=== PATIENT | male | born 1970 | race American Indian/Alaskan Native ===

== ENCOUNTER 2016-12-27 19:03 | Emergency (ER) | payer MEDICARE, BC ==
[2016-12-27 19:04] VITALS: BMI 35.2
[2016-12-27 19:10] VITALS: RESP 16; TEMP 98.6
[2016-12-27] MEDS ORDERED: Iohexol 240 (50 ml) ONE (19:46)
--- NOTE | 2016-12-27 19:49 | ED PDOC ---
Arrival/HPI - History of Present Illness Time/Duration: 4-6 hours Symptom Onset: Sudden Symptom Course: Unchanged Quality: Other (sharp and constant) Severity Level: 7 Activities at Onset: Rest Context: Sitting <Randy Chapa - Last Filed: 12/28/16 00:16> - General Historian: Patient <Jerrica Garcia - Last Filed: 12/28/16 01:19> - General Chief Complaint: Abdominal Pain Time Seen by Provider: 12/27/16 19:09 - History of Present Illness Narrative History of Present Illness (Text): 12/27/16 19:42 This is a 46 yr. old male with a pertinent past medical history of Hypertension , Type 2 D.M., Gastritis, Pulmonary embolism, ESRD, and stomach ulcers who comes to [facility] complaining of jaiden-umbilical pain since earlier this morning. The patient reports being at dialysis earlier today when he began to have jaiden-umbilical pain. He describes the pain as sharp and constant in nature with no radiation. The patient reports taking a Dilaudid pill earlier but denies any improvement in symptoms. The patient reports three episodes of non-bloody, bilious vomiting in conjunction with the jaiden-umbilical pain. The patient denies any chest pain, shortness of breath, nausea, constipation, diarrhea, weakness, or any other complaints. (Randy Chapa) Past Medical History - Provider Review Nursing Documentation Reviewed: Yes - Infectious Disease Hx of Infectious Diseases: None - Tetanus Immunization Tetanus Immunization: Unknown - Cardiac Hx Cardiac Disorders: Yes Hx Hypertension: Yes - Renal Hx Renal Disorder: Yes Hx Dialysis: Yes Type of Dialysis Access: left AV fistula Date of Last Dialysis Treatment: 12/27/16 Hx Renal Failure: Yes - Endocrine/Metabolic Hx Diabetes Mellitus Type 1: Yes (dx at 16 yrs old,pt uses insulin pump at home) - Hematological/Oncological Hx Blood Transfusions: (NA) Hx Blood Transfusion Reaction: (NA) - Musculoskeletal/Rheumatological Hx Falls: No - Gastrointestinal Hx Gastritis: Yes - Psychiatric Hx Depression: No Hx Emotional Abuse: No Hx Physical Abuse: No Hx Substance Use: No - Surgical History Hx Cholecystectomy: Yes Hx Kidney Transplant: Yes (2009) - Anesthesia Hx Anesthesia Reactions: No Hx Malignant Hyperthermia: No - Suicidal Assessment Feels Threatened In Home Enviroment: No <Randy Chapa - Last Filed: 12/28/16 00:16> Family/Social History - Physician Review Nursing Documentation Reviewed: Yes Family/Social History: No Known Family HX Smoking Status: Never Smoked Hx Alcohol Use: No Hx Substance Use: No Hx Substance Use Treatment: No <Randy Chapa - Last Filed: 12/28/16 00:16> Allergies/Home Meds <Randy Chapa - Last Filed: 12/28/16 00:16> <Jerrica Garcia - Last Filed: 12/28/16 01:19> Allergies/Adverse Reactions: Allergies No Known Allergies Allergy (Verified 12/29/12 08:26) Home Medications: Home Meds Medication Instructions Recorded Confirmed HYDROmorphone [Dilaudid] 4 mg PO Q6H PRN 02/28/13 12/27/16 Insulin Glulisine [Apidra] 0 unit SQ TID 12/27/16 12/27/16 Lisinopril [Zestril] 5 mg PO DAILY 12/27/16 12/27/16 Metoclopramide [Reglan] 10 mg PO TID 12/27/16 12/27/16 Ondansetron [Zofran Odt] 4 mg PO PRN PRN 12/27/16 12/27/16 Pantoprazole Sodium [Protonix] 40 mg PO DAILY 12/27/16 12/27/16 amLODIPine [Norvasc] 10 mg PO DAILY 12/27/16 12/27/16 cloNIDine [clonidine HCl] 0.2 mg PO TID 12/27/16 12/27/16 Review of Systems - Physician Review All systems were reviewed & negative as marked: Yes - Review of Systems Constitutional: Normal. absent: Weight Change, Fevers, Night Sweats Eyes: Normal. absent: Vision Changes, Eye Pain ENT: Normal. absent: Sore Throat, Sinus Congestion Respiratory: Normal, SOB. absent: Cough, Sputum, Wheezing Cardiovascular: Normal. absent: Chest Pain, Palpitations Gastrointestinal: Abdominal Pain (periumbilical pain with no radiation), Nausea , Vomiting (Three episodes of non-bloody, billious). absent: Constipation, Diarrhea Genitourinary Male: Normal. absent: Frequency, Hematuria Musculoskeletal: Normal. absent: Back Pain Neurological: Normal. absent: Headache, Dizziness Endocrine: Normal. absent: Polyuria, Polydipsia Hemo/Lymphatic: Normal. absent: Easy Bruising Psychiatric: Normal <Randy Chapa - Last Filed: 12/28/16 00:16> Physical Exam Vital Signs Reviewed: Yes Temperature: Afebrile Blood Pressure: Normal Pulse: Tachycardic Respiratory Rate: Normal Appearance: Positive for: Well-Appearing, Non-Toxic, Comfortable Pain Distress: Moderate Mental Status: Positive for: Alert and Oriented X 3 - Systems Exam Head: Present: Atraumatic, Normocephalic Pupils: Present: PERRL. No: Sluggish Extroacular Muscles: Present: EOMI. No: Gaze Palsy Conjunctiva: Present: Normal. No: Injected Mouth: Present: Moist Mucous Membranes, Normal Tounge Nose (External): No: Laceration Neck: Present: Normal Range of Motion. No: JVD, Lymphadenopathy Respiratory/Chest: Present: Clear to Auscultation, Good Air Exchange. No: Respiratory Distress, Accessory Muscle Use, Wheezes Cardiovascular: Present: Regular Rate and Rhythm, Normal S1, S2, Tachycardic. No: Murmurs, Bradycardic Abdomen: Present: Tenderness (noted in all quadrants of the abdomen), Normal Bowel Sounds. No: Distention, Peritoneal Signs Upper Extremity: Present: Other (A/V fistula in left arm, PICC line in right arm ) Lower Extremity: No: Edema, Swelling Neurological: Present: CN II-XII Intact, Speech Normal Skin: Present: Dry, Rashes (Anterior right bowers has some rash noted.) Psychiatric: Present: Alert, Oriented x 3, Normal Insight <Randy Chapa - Last Filed: 12/28/16 00:16> Medical Decision Making <Randy Chapa - Last Filed: 12/28/16 00:16> - RAD Interpretation Nuclear Licensing Engineer: Radiologist <Jerrica Garcia - Last Filed: 12/28/16 01:19> ED Course and Treatment: 12/27/16 19:56 This is a 46 yr. old male who comes in to [facility] complaining of periumbilical pain that started at dialysis earlier today. I ordered a cbc w/diff, cmp, lipase, and an abdomen and pelvis ct with PO contrast. The patient was given Protonix and Zofran for symptoms. Patient will be re-evaluated once lab results return. 12/27/16 20:03 12/27/16 20:04 Patient was given Benadryl and Dilaudid for remaining complaints. Patient will be re-evaluated once all lab results return. 12/27/16 22:28 Patient reporting no improvement in pain severity. Patient requesting more IV Dilaudid and IV Benadryl. Patient offered PO Dilaudid however reports it isn't affective for his pain and prefers not to take it. Informed patient that IV Dilaudid could no longer be administered to him. 12/28/16 00:16 Patient to be discharged on Ciprofloxacin and Flagyl for 7 days. (Randy Chapa) 12/27/16 22:50 CT Abdomen and Pelvis Without Intravenous Contrast COMPARISON: No relevant prior studies available. FINDINGS: Lower thorax: No acute findings. ABDOMEN: Liver: Unremarkable. No suspicious lesions are seen. Gallbladder and bile ducts: There has been a cholecystectomy. Pancreas: Unremarkable. No ductal dilation. Spleen: Unremarkable. No splenomegaly. Adrenals: Unremarkable. No mass. Kidneys and ureters: A transplant kidney is present in the right lower quadrant without significant hydronephrosis. Retained contrast within the patient's calyces and renal pelvis is noted in association with a transplant kidney, likely from a previous contrast enhanced study. Mild pelvic caliectasis. No significant hydronephrosis. Stomach and bowel: Moderate amount of formed fecal material is seen within the large bowel loops which may be associated with constipation. There is apparent moderate thickening of the second to patient's rectosigmoid which is possibly due to inadequate distention. Presence of underlying sigmoiditis or proctitis cannot be excluded. Please correlate clinically. Please see images 98, series 601. Appendix: No findings to suggest acute appendicitis. PELVIS: Bladder: The bladder is decompressed but otherwise normal. No stones. Reproductive: Unremarkable as visualized. ABDOMEN and PELVIS: Intraperitoneal space: Unremarkable. No free air. No significant fluid collection. Bones/joints: No acute fracture. No dislocation. Soft tissues: Fat-containing ventral hernia likely an incisional hernia. Vasculature: The aorta demonstrates moderate atherosclerotic calcification. There is small vessel calcification present. No abdominal aortic aneurysm. Lymph nodes: Unremarkable. No enlarged lymph nodes. Tubes, lines and devices: Neural stimulator device and leads appear in place. Shrunken atrophic kidneys bilaterally with nonspecific calcifications likely vascular. IMPRESSION: Patient has history of chronic renal failure presumably secondary to diabetes. A transplant kidney seen in the right lower quadrant without significant hydronephrosis. Other surgical changes as described. Moderate thickening of the rectosigmoid as described without significant adjacent fluid stranding. Findings could be related to inadequate distention or mild sigmoiditis, or proctitis. 12/28/16 00:20 In agreement with resident note, which includes further HPI details. Patient was seen and evaluated with resident, came up with plan and treatment together. 12/28/16 01:17 Patient with noted history. Labs are nondiagnostic and c/w ESRD; due for HD tomorrow (given kayexalate for K of 5.6); CT showing possible sigmoiditis - will d/c on cipro and flagyl; he has no fever or leukocytosis or vomiting and pain is controlled here in the ED - no indication for admission - ok for d/c to f/u pmd and HD tomorrow. (Jerrica Garcia) - Lab Interpretations Lab Results: 12/27/16 19:45 12/27/16 19:45 Lab Results 12/27/16 19:45: Sodium 132, Potassium 5.6 H* D, Chloride 95, Carbon Dioxide 26, Anion Gap 17, BUN 49 H, Creatinine 10.3 H*, Est GFR ( Amer) 7, Est GFR ( Non-Af Amer) 5, Random Glucose 265 H, Calcium 8.8, Total Bilirubin 0.4, AST 35, ALT 13, Alkaline Phosphatase 131, Total Protein 6.6, Albumin 3.1, Globulin 3.5, Albumin/Globulin Ratio 0.9 L, Lipase 41 12/27/16 19:45: WBC 7.1, RBC 3.35 L, Hgb 9.2 L, Hct 27.9 L, MCV 83.3, MCH 27.5, MCHC 33.0, RDW 16.6 H, Plt Count 318, MPV 9.2, Gran % 71.0 H, Lymph % (Auto) 13.0 L, [place] % (Auto) 8.4 H, Eos % (Auto) 7.2 H, Baso % (Auto) 0.4, Gran # 5.01 , Lymph # 0.9 L, [place] # 0.6, Eos # 0.5, Baso # 0.03, Corrected WBC (Man) Cancelled, Neutrophils % (Manual) Cancelled, Band Neutrophils % Cancelled, Lymphocytes % (Manual) Cancelled, Atypical Lymphs % Cancelled, Monocytes % ( Manual) Cancelled, Eosinophils % (Manual) Cancelled, Basophils % (Manual) Cancelled, Metamyelocytes % Cancelled, Myelocytes % Cancelled, Promyelocytes % Cancelled, Nucleated RBC % Cancelled, Hypersegmented Polys Cancelled, Immature Lymphocytes Cancelled, Blast Cells Cancelled, Smudge Cells Cancelled, Toxic Granulation Cancelled, Dohle Bodies Cancelled, Murali Rods Cancelled, Platelet Evaluation Cancelled, Plt Clumps, EDTA Cancelled, Large Platelets Cancelled, Giant Platelets Cancelled, Polychromasia Cancelled, Hypochromasia Cancelled, Hyperchromasia Cancelled, Poikilocytosis (manual Cancelled, Basophilic Stippling Cancelled, Anisocytosis (manual) Cancelled, Microcytosis (manual) Cancelled, Macrocytosis (manual) Cancelled, Spherocytes Cancelled, Sickle Cells Cancelled, Target Cells Cancelled, Tear Drop Cells Cancelled, Ovalocytes Cancelled, Stomatocytes Cancelled, Helmet Cells Cancelled, [place] Rings Cancelled , John Cells Cancelled, Acanthocytes (Spur) Cancelled, Rouleaux Cancelled, Schistocytes Cancelled - RAD Interpretation Radiology Orders: 12/27/16 19:41 ABDOMEN & PELVIS [ABD & PELVIS PO CONTRAST ONLY] [CT] Stat - Medication Orders Current Medication Orders: Discontinued Medications Ciprofloxacin (Cipro) 250 mg PO STAT STA PRN Reason: Protocol Stop: 12/27/16 23:05 Last Admin: 12/27/16 23:23 Dose: 250 mg Diphenhydramine HCl (Benadryl) 10 mg IVP STAT STA Stop: 12/27/16 20:03 Last Admin: 12/27/16 20:16 Dose: 10 mg Diphenhydramine HCl (Benadryl) 10 mg IVP STAT STA Stop: 12/28/16 00:14 Last Admin: 12/28/16 00:26 Dose: 10 mg Hydromorphone HCl (Dilaudid) 1 mg IVP STAT STA Stop: 12/27/16 20:03 Last Admin: 12/27/16 20:15 Dose: 1 mg Hydromorphone HCl (Dilaudid) 2 mg IVP STAT STA Stop: 12/27/16 23:05 Last Admin: 12/27/16 23:23 Dose: 2 mg Iohexol (Omnipaque 240 (50 Ml)) Confirm Administered Dose 50 ml .ROUTE .STK-MED ONE Stop: 12/27/16 19:47 Metronidazole (Flagyl) 500 mg PO STAT STA PRN Reason: Protocol Stop: 12/27/16 23:06 Last Admin: 12/27/16 23:23 Dose: 500 mg Ondansetron HCl (Zofran Inj) 4 mg IVP STAT STA Stop: 12/27/16 19:41 Last Admin: 12/27/16 20:16 Dose: 4 mg Pantoprazole Sodium (Protonix Inj) 40 mg IVP STAT STA Stop: 12/27/16 19:42 Last Admin: 12/27/16 20:15 Dose: 40 mg Sodium Polystyrene Sulfonate (Kayexalate Oral Susp) 30 gm PO STAT STA Stop: 12/27/16 23:07 Last Admin: 12/27/16 23:23 Dose: 30 gm <Randy Chapa - Last Filed: 12/28/16 00:16> - PA / CLAIM INSPECTOR / Resident Statement MD/ has reviewed & agrees with the documentation as recorded. MD/DO has examined the patient and agrees with the treatment plan. - Scribe Statement The provider has reviewed the documentation as recorded by the Scribe <Jerrica Garcia - Last Filed: 12/28/16 01:19> - Scribe Statement 12/27/2016 Ruba Bravo Provider Scribe Attestation: All medical record entries made by the Scribe were at my direction and personally dictated by me. I have reviewed the chart and agree that the record accurately reflects my personal performance of the history, physical exam, medical decision making, and the department course for this patient. I have also personally directed, reviewed, and agree with the discharge instructions and disposition. (Jerrica Garcia) Disposition/Present on Arrival - Present on Arrival Any Indicators Present on Arrival: No History of DVT/PE: No History of Uncontrolled Diabetes: No Urinary Catheter: No History of Decub. Ulcer: No History Surgical Site Infection Following: None - Disposition Have Diagnosis and Disposition been Completed?: Yes Disposition Time: 00:21 Patient Plan: Discharge <Randy Chapa - Last Filed: 12/28/16 00:16> <Jerrica Garcia - Last Filed: 12/28/16 01:19> - Disposition Diagnosis: Sigmoiditis Disposition: HOME/ ROUTINE Condition: GOOD Additional Instructions: Patient is to f/u with PMD within one week. Patient prescribed Ciprofloxacin 250mg BID X 7 days and Flagyl 500 mg BID x 7 days. Patient is to return to [facility] for any new or concerning symptoms. Prescriptions: Ciprofloxacin HCl [Cipro] 250 mg PO BID #14 tablet Metronidazole [Flagyl] 500 mg PO BID #14 tablet Referrals: PCP,NO [Primary Care Provider] - Follow up with primary Forms: [employer] (Hebrew)
[2016-12-27] MEDS ORDERED: DiphenhydrAMINE 50 mg/ml Inj IVP STA (20:02)
[2016-12-27] MEDS ORDERED: HYDROmorphone 1 mg/ml ISec IVP STA (20:02)
[2016-12-27 20:10] LABS: ALB/GLOB RATIO 0.9 (1.1-1.8); BILIRUBIN,TOTAL 0.4 mg/dL (0.2-1.3); CALCIUM 8.8 mg/dL (8.4-10.5); TOTAL PROTEIN 6.6 g/dL (5.8-8.3)
[2016-12-27 20:15] LABS: POTASSIUM 5.6 mmol/L (3.6-5.0)
[2016-12-27 20:35] LABS: BASO # 0.03 K/mm3 (0.0-2.0); BASO % 0.4 % (0.0-3.0); EOS # 0.5 (0.0-0.7); EOS % 7.2 % (1.5-5.0); GRAN # 5.01 (1.4-6.5); HEMATOCRIT 27.9 % (42.0-52.0); LYMPH # 0.9 (1.2-3.4); MEAN CELL VOLUME 83.3 fl (80.0-105.0); MEAN CORPUSCULAR HEMOGLOBIN 27.5 pg (25.0-35.0); MEAN PLATELET VOLUME 9.2 fl (7.0-11.0); MONO # 0.6 (0.1-0.6); MONO % 8.4 % (1.0-6.0); RED CELL DISTRIBUTION WIDTH 16.6 % (11.5-14.5); WHITE BLOOD COUNT 7.1 10^3/ul (4.5-11.0)
[2016-12-27] MEDS ORDERED: HYDROmorphone 2 mg/ml ISec IVP STA (23:04)
[2016-12-27] MEDS ORDERED: Sod Polystyrene Sulf 15 gm/60 ml Oral Susp PO STA (23:06)
[2016-12-27 23:35] VITALS: PULSE 89; O2SAT 95
[2016-12-28] MEDS ORDERED: DiphenhydrAMINE 50 mg/ml Inj IVP STA (00:13)
[2016-12-28 00:41] VITALS: BP 154/90
--- NOTE | 2016-12-28 10:47 | CT ---
PROCEDURE: CT Abdomen and Pelvis without intravenous contrast HISTORY: diffuse abdominal pain COMPARISON: 02/12/2013 TECHNIQUE: Without contrast. Contrast Dose: Radiation dose: Total exam DLP = 1169 mGy-cm. This CT exam was performed using one or more of the following dose reduction techniques: Automated exposure control, adjustment of the mA and/or kV according to patient size, and/or use of iterative reconstruction technique. FINDINGS: LOWER THORAX: Unremarkable. LIVER: Unremarkable. No gross lesion or ductal dilatation. GALLBLADDER AND BILE DUCTS: Gallbladder removed PANCREAS: Unremarkable. No gross lesion or ductal dilatation. SPLEEN: Unremarkable. ADRENALS: Unremarkable. No mass. KIDNEYS AND URETERS: The [place] kidneys are atrophic. There is a transplant kidney in the right lower quadrant. There is some dense material within renal pelvis and calices. Has the patient had a recent contrast-enhanced exam? There is no record of a recent exam at this institution. VASCULATURE: Unremarkable. No aortic aneurysm. BOWEL: There is some mural thickening in the rectosigmoid. This could be due to under distention. Mild colitis is possible APPENDIX: Unremarkable. Normal appendix. PERITONEUM: Unremarkable. No free fluid. No free air. LYMPH NODES: Unremarkable. No enlarged lymph nodes. BLADDER: Unremarkable. REPRODUCTIVE: Unremarkable. BONES: No acute fracture. OTHER FINDINGS: The report concurs with the preliminary [facility] report IMPRESSION: There is some mural thickening in the rectosigmoid. This could be due to under distention. Mild colitis is possible The [place] kidneys are atrophic. There is a transplant kidney in the right lower quadrant. There is some dense material within renal pelvis and calices. Has the patient had a recent contrast-enhanced exam? There is no record of a recent exam at this institution.
== END 2016-12-28 00:39 | disposition home or self-care (01) ==
LOC: ED 19:03
DX: K52.9 Noninfective gastroenteritis and colitis, unspecified (principal)
CPT/HCPCS: 74176; 80053; 83690; 85025; 96374; 96375; 96376; 99283; C9113; J1170; J1200; J2405; Q9966

== ENCOUNTER 2016-12-29 06:55 | Emergency (ER) | payer MEDICARE, BC ==
[2016-12-29 06:55] VITALS: BMI 35.2
[2016-12-29 07:11] VITALS: BP 178/109; PULSE 106; RESP 16; TEMP 98.4; O2SAT 97
--- NOTE | 2016-12-29 07:39 | ED PDOC ---
Arrival/HPI <Jose Guadalupe Saha - Last Filed: 12/29/16 08:37> - History of Present Illness Time/Duration: 4-6 hours Symptom Onset: Sudden Symptom Course: Unchanged Quality: Other (sharp) Severity Level: 8 Activities at Onset: Rest Context: Sitting <Randy Chapa - Last Filed: 12/29/16 08:51> - General Time Seen by Provider: 12/29/16 07:07 - History of Present Illness Narrative History of Present Illness (Text): 12/29/16 07:35 This is a 46 yr old male with a past medical history of hypertension, ESRD, s/p renal transplant, gastroporesis, gastritis, and Type 2 Diabetes who comes to [facility] complaining of vomiting since 4:30 a.m. this morning. The patient reports three episodes of non-bloody, non-bilious vomit. The patient also reports in conjunction with the vomiting jaiden-umbilical pain with no radiation. The patient describes the pain as sharp in nature that is constant. The patient reports trying to take PO Dilaudid for relief but denies any improvement in symptoms. The patient denies any chest pain, shortness of breath, fever, chills, constipation, diarrhea, or any other complaints. ( Randy Chapa) Past Medical History - Provider Review Nursing Documentation Reviewed: Yes - Infectious Disease Hx of Infectious Diseases: None - Tetanus Immunization Tetanus Immunization: Unknown - Cardiac Hx Cardiac Disorders: Yes Hx Hypertension: Yes - Renal Hx Renal Disorder: Yes Hx Dialysis: Yes Date of Last Dialysis Treatment: 12/27/16 Hx Renal Failure: Yes - Endocrine/Metabolic Hx Diabetes Mellitus Type 1: Yes (dx at 16 yrs old,pt uses insulin pump at home) - Hematological/Oncological Hx Blood Transfusions: (NA) Hx Blood Transfusion Reaction: (NA) - Musculoskeletal/Rheumatological Hx Falls: No - Gastrointestinal Hx Gastritis: Yes - Psychiatric Hx Depression: No Hx Emotional Abuse: No Hx Physical Abuse: No Hx Substance Use: No - Surgical History Hx Cholecystectomy: Yes Hx Kidney Transplant: Yes (2009) - Anesthesia Hx Anesthesia Reactions: No Hx Malignant Hyperthermia: No - Suicidal Assessment Feels Threatened In Home Enviroment: No <Randy Chapa - Last Filed: 12/29/16 08:51> Family/Social History - Physician Review Nursing Documentation Reviewed: Yes Family/Social History: No Known Family HX Smoking Status: Never Smoked Hx Alcohol Use: No Hx Substance Use: No Hx Substance Use Treatment: No <Randy Chapa - Last Filed: 12/29/16 08:51> Allergies/Home Meds <Jose Guadalupe Saha - Last Filed: 12/29/16 08:37> <Randy Chapa - Last Filed: 12/29/16 08:51> Allergies/Adverse Reactions: Allergies ketamine Adverse Reaction (Severe, Verified 12/29/16 07:13) DIZZINESS patient states that after ketamine had bizzare behavior (no dizziness) Home Medications: Home Meds Medication Instructions Recorded Confirmed HYDROmorphone [Dilaudid] 4 mg PO Q6H PRN 02/28/13 12/29/16 Insulin Glulisine [Apidra] 0 unit SQ TID 12/27/16 12/29/16 Lisinopril [Zestril] 5 mg PO DAILY 12/27/16 12/29/16 Metoclopramide [Reglan] 10 mg PO TID 12/27/16 12/29/16 Ondansetron [Zofran Odt] 4 mg PO PRN PRN 12/27/16 12/29/16 Pantoprazole Sodium [Protonix] 40 mg PO DAILY 12/27/16 12/29/16 amLODIPine [Norvasc] 10 mg PO DAILY 12/27/16 12/29/16 cloNIDine [clonidine HCl] 0.2 mg PO TID 12/27/16 12/29/16 Review of Systems - Physician Review All systems were reviewed & negative as marked: Yes - Review of Systems Constitutional: Normal. absent: Fatigue, Fevers, Night Sweats Eyes: Normal. absent: Vision Changes, Eye Pain ENT: Normal. absent: Rhinorrhea, Sinus Congestion Respiratory: Normal. absent: SOB, Cough, Sputum, Wheezing Cardiovascular: Normal. absent: Chest Pain, Palpitations, Syncope Gastrointestinal: Abdominal Pain (Periumbilical pain with no radiation), Nausea , Vomiting (3 episodes of vomiting since 4:30a.m.). absent: Constipation, Diarrhea, Hematochezia Genitourinary Male: Normal. absent: Frequency Musculoskeletal: Normal. absent: Back Pain Skin: Skin Lesions (Anterior shins bilaterally). absent: Abscess Neurological: Normal. absent: Headache, Dizziness Psychiatric: Normal <Randy Chapa - Last Filed: 12/29/16 08:51> Physical Exam Vital Signs Reviewed: Yes Temperature: Afebrile Blood Pressure: Hypertensive Pulse: Tachycardic Respiratory Rate: Normal Appearance: Positive for: Well-Appearing, Non-Toxic, Uncomfortable Pain Distress: Severe Mental Status: Positive for: Alert and Oriented X 3 - Systems Exam Head: Present: Atraumatic, Normocephalic Pupils: Present: PERRL. No: Sluggish Extroacular Muscles: Present: EOMI. No: Gaze Palsy Conjunctiva: Present: Normal. No: Injected Mouth: Present: Moist Mucous Membranes. No: Normal Tounge Neck: Present: Normal Range of Motion. No: JVD, Lymphadenopathy Respiratory/Chest: Present: Clear to Auscultation, Good Air Exchange. No: Respiratory Distress, Accessory Muscle Use, Wheezes Cardiovascular: Present: Regular Rate and Rhythm, Normal S1, S2. No: Murmurs, Tachycardic Abdomen: Present: Tenderness (Tenderness upon palpation in the periumbilical area), Normal Bowel Sounds. No: Distention, Rebound, Guarding Back: Present: Normal Inspection. No: Paraspinal Tenderness Upper Extremity: Present: Normal Inspection. No: Cyanosis, Edema Lower Extremity: Present: Normal Inspection. No: Edema Neurological: Present: CN II-XII Intact, Speech Normal Skin: Present: Dry, Normal Color. No: Warm, Rashes Psychiatric: Present: Alert, Oriented x 3, Normal Insight <Randy Chapa - Last Filed: 12/29/16 08:51> Vital Signs Temp Pulse Resp BP Pulse Ox 12/29/16 07:01 98.4 F 106 H 16 178/109 H 97 Medical Decision Making <Jose Guadalupe Saha - Last Filed: 12/29/16 08:37> <Randy Chapa - Last Filed: 12/29/16 08:51> ED Course and Treatment: 12/29/16 08:37 Patient seen and examined with resident Came up with treatment and disposition plan with resident 46yo male, hx of ESRD, states he is due for HD later today. Presents with abd. pain. States it is similar to previous. Pt states he needs pain medications for his abd pain and benadryl for the itching. Pt repeatedly asking for dilaudid IV since PO is no longer helping I have seen Hardeep at another institution in the past Had another long dw with patient about my concerns for opiate dependence I offered alternative therapies my concern was also that pt reported that he was driving and I did not want to give his benadryl which may make him drowsy patient was not happy with my plan I offered him workup for his complaint Informed by RN that patient eloped (Jose Guadalupe Saha) 12/29/16 07:50 Patient is a 46 yr old male who comes into [facility] complaining of three episodes of vomiting since 4:30 this morning. I ordered cbc w/diff, cmp, lipase, ct of abdomen and pelvis w/o contrast, ekg. Patient was given Pepcid, Topical Benadryl, Zofran, and Tylenol for symptoms. Patient exhibits drug seeking behavior. Patient requesting IV Dilaudid. Patient eloped once we informed him he would not be getting IV Dilaudid. 12/29/16 08:51 (Randy Chapa) - Lab Interpretations Lab Results: 12/29/16 07:30 12/29/16 07:30 Lab Results 12/29/16 07:30: Sodium 137, Potassium 5.0, Chloride 98, Carbon Dioxide 26, Anion Gap 18, BUN 68 H, Creatinine 12.7 H*, Est GFR ( Amer) 5, Est GFR ( Non-Af Amer) 4, Random Glucose 198 H, Calcium 9.1, Total Bilirubin 0.3, AST 31, ALT 26, Alkaline Phosphatase 109, Total Protein 7.0, Albumin 3.4, Globulin 3.6, Albumin/Globulin Ratio 0.9 L 12/29/16 07:30: WBC 8.9 D, RBC 3.46 L, Hgb 9.5 L, Hct 28.6 L, MCV 82.7, MCH 27.5, MCHC 33.2, RDW 16.4 H, Plt Count 300, MPV 9.2, Gran % 68.6 H, Lymph % ( Auto) 16.0 L, [place] % (Auto) 8.4 H, Eos % (Auto) 6.7 H, Baso % (Auto) 0.3, Gran # 6.08, Lymph # 1.4, [place] # 0.7 H, Eos # 0.6, Baso # 0.03 - Medication Orders Current Medication Orders: Discontinued Medications Acetaminophen (Tylenol 325mg Tab) 650 mg PO STAT STA Stop: 12/29/16 07:49 Last Admin: 12/29/16 07:54 Dose: Not Given Non-Admin Reason: Patient Refused Acetaminophen (Tylenol 325mg Tab) Confirm Administered Dose 650 mg .ROUTE .STK- MED ONE Stop: 12/29/16 07:52 Last Admin: 12/29/16 07:54 Dose: Diphenhydramine HCl (Benadryl Maximum Strength 1%) 0 ea TOP Q6H STA Stop: 12/29/16 07:46 Last Admin: 12/29/16 07:54 Dose: Not Given Non-Admin Reason: Patient Refused Famotidine (Pepcid) 40 mg PO STAT STA Stop: 12/29/16 07:45 Last Admin: 12/29/16 07:54 Dose: Not Given Non-Admin Reason: Patient Refused Disposition/Present on Arrival - Disposition Have Diagnosis and Disposition been Completed?: Yes Patient Plan: Other <Jose Guadalupe Saha - Last Filed: 12/29/16 08:37> - Present on Arrival Any Indicators Present on Arrival: No History of DVT/PE: No History of Uncontrolled Diabetes: No Urinary Catheter: No History of Decub. Ulcer: No History Surgical Site Infection Following: None - Disposition Have Diagnosis and Disposition been Completed?: No Disposition Time: 08:05 Patient Plan: Other (Elopement) <Randy Chapa - Last Filed: 12/29/16 08:51> - Disposition Diagnosis: Abdominal discomfort Disposition: ELOPEMENT - ER ONLY Condition: UNKNOWN Forms: [employer] (Dominican)
[2016-12-29] MEDS ORDERED: DiphenhydrAMINE 1% 1 EA TUBE TOP STA (07:45)
[2016-12-29 07:55] LABS: BASO # 0.03 K/mm3 (0.0-2.0); BASO % 0.3 % (0.0-3.0); EOS # 0.6 (0.0-0.7); EOS % 6.7 % (1.5-5.0); GRAN # 6.08 (1.4-6.5); GRAN % 68.6 % (50.0-68.0); HEMATOCRIT 28.6 % (42.0-52.0); LYMPH # 1.4 (1.2-3.4); MEAN CELL VOLUME 82.7 fl (80.0-105.0); MEAN CORPUSCULAR HEMOGLOBIN 27.5 pg (25.0-35.0); MEAN CORPUSCULAR HGB CONC 33.2 g/dl (31.0-37.0); MEAN PLATELET VOLUME 9.2 fl (7.0-11.0); MONO # 0.7 (0.1-0.6); MONO % 8.4 % (1.0-6.0); RED CELL DISTRIBUTION WIDTH 16.4 % (11.5-14.5); WHITE BLOOD COUNT 8.9 10^3/ul (4.5-11.0)
[2016-12-29 08:08] LABS: ALB/GLOB RATIO 0.9 (1.1-1.8); BILIRUBIN,TOTAL 0.3 mg/dL (0.2-1.3); CALCIUM 9.1 mg/dL (8.4-10.5)
--- NOTE | 2016-12-29 17:10 | CARD ---
APPROVED REPORT EKG Measurement Heart [id number] [id number] <Conclusion> Sinus tachycardia Anterior infarct, age undetermined T wave abnormality, consider lateral ischemia Abnormal ECG
== END 2016-12-29 08:24 | disposition left against medical advice (07) ==
LOC: ED 06:55
DX: R10.9 Unspecified abdominal pain (principal); I10 Essential (primary) hypertension; E11.9 Type 2 diabetes mellitus without complications

== ENCOUNTER 2016-12-31 09:17 | Emergency (ER) | payer MEDICARE, BC ==
[2016-12-31 09:17] VITALS: BMI 34.5
[2016-12-31 09:35] VITALS: TEMP 98.6; O2SAT 97
[2016-12-31 09:42] VITALS: RESP 18
--- NOTE | 2016-12-31 09:49 | ED PDOC ---
Arrival/HPI - General Historian: Patient - General Chief Complaint: Abdominal Pain Time Seen by Provider: 12/31/16 09:26 - History of Present Illness Narrative History of Present Illness (Text): 12/31/16 09:45 46 yr old male with a past medical history of Hypertension, Type 2 D.M., Gastritis, Pulmonary embolism, ESRD, and stomach ulcers who presents complaining of constant, nonradiating jaiden-umbilical pain associated with nausea and 3 episodes of vomiting since this morning. Patient reports having similar symptoms in the past, states that he has been evaluated in this emergency room and at [facility] for similar symptoms and he is usually given Dilaudid IV with Benadryl IV with improvement of his symptoms. Patient states that this pain is chronic and intermittent and that he does have Dilaudid PO at home which he has been taking with no improvement of his symptoms and is requesting an IV dose as it alleviates his pain better. Patient reports that he is due for dialysis at 3 pm today. The patient reports taking a Dilaudid pill earlier but denies any improvement in symptoms. Denies any chest pain, shortness of breath, fever, constipation, diarrhea, weakness, urinary symptoms or any other complaints. Reports h/o renal transplant in 2009, which failed this [facility] and he is back to HD, he is also s/p cholecystectomy. Of note, the patient admits to recently being evaluated in this emergency room, states that he was prescribed Cipro and Flagyl, which he is currently still taking. He adds that he has a appointment with a GI doctor in January, he states that during that visit he will also have an endoscopy done. PMD Chery (Brandon BATES,Altagracia Hernandez) Past Medical History - Provider Review Nursing Documentation Reviewed: Yes - Infectious Disease Hx of Infectious Diseases: None - Tetanus Immunization Tetanus Immunization: Unknown - Cardiac Hx Hypertension: Yes - Renal Hx Renal Disorder: Yes Type of Dialysis Access: left arm Date of Last Dialysis Treatment: 12/29/16 Hx Renal Failure: Yes - Endocrine/Metabolic Hx Diabetes Mellitus Type 1: Yes (dx at 16 yrs old,pt uses insulin pump at home) - Hematological/Oncological Hx Blood Transfusions: (NA) Hx Blood Transfusion Reaction: (NA) - Musculoskeletal/Rheumatological Hx Falls: No - Gastrointestinal Hx Gastritis: Yes - Psychiatric Hx Depression: No Hx Substance Use: No - Surgical History Hx Cholecystectomy: Yes - Anesthesia Hx Anesthesia Reactions: No Hx Malignant Hyperthermia: No - Suicidal Assessment Feels Threatened In Home Enviroment: No Family/Social History - Physician Review Nursing Documentation Reviewed: Yes Family/Social History: No Known Family HX Smoking Status: Never Smoked Hx Alcohol Use: No Hx Substance Use: No Hx Substance Use Treatment: No Allergies/Home Meds Allergies/Adverse Reactions: Allergies ketamine Adverse Reaction (Severe, Verified 12/31/16 09:35) DIZZINESS patient states that after ketamine had bizzare behavior (no dizziness) Home Medications: Home Meds Medication Instructions Recorded Confirmed HYDROmorphone [Dilaudid] 4 mg PO Q6H PRN 02/28/13 12/31/16 Insulin Glulisine [Apidra] 0 unit SQ TID 12/27/16 12/31/16 Lisinopril [Zestril] 5 mg PO DAILY 12/27/16 12/31/16 Metoclopramide [Reglan] 10 mg PO TID 12/27/16 12/31/16 Ondansetron [Zofran Odt] 4 mg PO PRN PRN 12/27/16 12/31/16 Pantoprazole Sodium [Protonix] 40 mg PO DAILY 12/27/16 12/31/16 amLODIPine [Norvasc] 10 mg PO DAILY 12/27/16 12/31/16 cloNIDine [clonidine HCl] 0.2 mg PO TID 12/27/16 12/31/16 Review of Systems - Review of Systems Constitutional: Normal. absent: Fatigue, Weight Change, Fevers Respiratory: Normal, SOB. absent: Cough, Sputum Cardiovascular: Normal. absent: Chest Pain, Palpitations, Edema Gastrointestinal: Normal, Abdominal Pain, Nausea, Vomiting. absent: Stool Changes, Constipation, Diarrhea, Appetite Changes Musculoskeletal: Normal, Myalgias. absent: Arthralgias, Back Pain, Neck Pain Skin: Normal. absent: Rash, Pruritis, Skin Lesions Neurological: Normal. absent: Headache, Dizziness, Focal Weakness Physical Exam - Physical Exam Narrative Physical Exam (Text): 12/31/16 09:49 GENERAL APPEARANCE: Patient is awake, alert, oriented x 3, in no acute distress. SKIN: Warm, dry; (-) cyanosis. EYES: (-) conjunctival pallor, (-) scleral icterus. ENMT: Mucous membranes dry. NECK: (-) tenderness, (-) stiffness, (-) lymphadenopathy. CHEST AND RESPIRATORY: (-) rales, (-) rhonchi, (-) wheezes; breath sounds equal bilaterally. HEART AND CARDIOVASCULAR: (-) irregularity; (-) murmur, (-) gallop. ABDOMEN AND GI: (-) distention. Bowel sounds active; (+) mild diffuse abdominal tenderness, (-) guarding, (-) rebound, (-) palpable masses, (-) CVA tenderness. EXTREMITIES: (-) deformity, (-) edema, (+) distal pulses. NEURO AND PSYCH: Mental status as above; (-) focal findings. (Brandon BATES,Altagracia Hernandez) Vital Signs Temp Pulse Resp BP Pulse Ox 12/31/16 12:00 89 18 165/89 H 97 12/31/16 11:09 98 H 18 167/94 H 97 12/31/16 09:42 98.6 F 107 H 18 169/110 H 97 12/31/16 09:30 98.6 F 107 H 20 169/110 H 97 Medical Decision Making ED Course and Treatment: 12/31/16 09:50 46 yr old male with a past medical history of Hypertension, Type 2 D.M., Gastritis, Pulmonary embolism, ESRD, and stomach ulcers who presents complaining of constant, nonradiating jaiden-umbilical pain associated with nausea and 3 episodes of vomiting since this morning. Previous medical records reviewed, patient has had numerous ED visits at [facility], and recently here. Patient was just evaluated on 12/27/16 for similar symptoms of periumbilical pain associated with nausea. During that ED visit patient had a CT A/P w/o contrast which showed mild sigmoiditis, or proctitis. Patient was then d/c on cipro and flagyl. Patient was then evaluated on 12/29/16 here for similar symptoms, however he eloped and that same day he went to [facility], were he left AMA. During those recent ED visits, it was noted that the patient may have opiate dependence and alternative treatment were offered. Plan: -- Labs -- IV fluids -- Pepcid / Zofran / Benadryl -- Reassess and disposition While in the emergency room, the patient was repeatedly asking for an IV dose of Dilaudid followed by a dose of Benadryl to alleviate his symptoms. Patient states that Pepcid and Zofran does not work for him and only Dilaudid improves his pain. Patient advised that the emergency room can provide alternative treatments for his symptoms and that we will hold off on providing Dilaudid IV at this time while the labs are pending. Patient is still continuing to ask for Dilaudid IV. Patient medicated with benadryl IV, patient refused IV pepcid and zofran. Labs reviewed : wbc 7.5, hgb 9 (which is stable from prior labs), k is normal, bun 50 / creat 11.1 (stable based on prior labs). On reevaluation, the patient is observed sleeping in the emergency room with improvement of his pain, easily arousable. At this time, the patient denies any abdominal pain or nausea and reports no other complaints. He is in no acute distress. Patient states that he is comfortable going home and that he will go for hemodialysis at his scheduled appointment of 3:00 this afternoon. VS : P 89 BP 165/89 R 18 O2sat 98%RA. Advised to follow up with primary care physician in 1-2 days without fail. Return to the emergency room at any time for any new or worsening symptoms. (Brandon BATES,Altagracia Hernandez) I reviewed patient's recent available visits. I reviewed patient's past history with patient. On exam, he denies any chest pain or shortness of breath. No fever. CV stable. He reports being scheduled for dialysis later today. Abdomen is soft, no rebound or guarding or peritoneal signs. Afebrile. No nausea. No uriticaria or wheezing or angioedema noted. Patient DENIES change in character or location of his current pain. Labs were reviewed, compared to recent visits. No active bleeding noted. K unremarkable. I have stressed need for close follow-up of his symptoms with his PMD, manager facility, and pain management physician. As he is CV stable, no change in character or quality or location of current symptoms from previous, I reviewed need for close follow-up. I reviewed his most recent available CT. He states he will continue his antibiotics as prescribed. He states he has script for pain medication that he has not filled yet from his pain management physician that he will fill on discharge. I have given him instructions on need for immediate follow-up, return to ED if symptoms worsen, change or persist. He is alert and oriented. (Joey Palacios) - Lab Interpretations Lab Results: 12/31/16 10:00 12/31/16 10:00 Lab Results 12/31/16 10:00: Sodium 136, Potassium 4.9, Chloride 98, Carbon Dioxide 26, Anion Gap 17, BUN 50 H, Creatinine 11.1 H*, Est GFR ( Amer) 6, Est GFR ( Non-Af Amer) 5, Random Glucose 175 H, Calcium 9.0, Total Bilirubin 0.4, AST 31, ALT 29, Alkaline Phosphatase 87, Total Protein 6.6, Albumin 3.2, Globulin 3.5, Albumin/Globulin Ratio 0.9 L, Lipase 15 L 12/31/16 10:00: WBC 7.5, RBC 3.37 L, Hgb 9.0 L, Hct 28.3 L, MCV 84.0, MCH 26.7, MCHC 31.8, RDW 16.7 H, Plt Count 328, MPV 9.3, Gran % 70.1 H, Lymph % (Auto) 13.9 L, [place] % (Auto) 9.0 H, Eos % (Auto) 6.6 H, Baso % (Auto) 0.4, Gran # 5.23 , Lymph # 1.0 L, [place] # 0.7 H, Eos # 0.5, Baso # 0.03 - Medication Orders Current Medication Orders: Discontinued Medications Diphenhydramine HCl (Benadryl) 25 mg IVP STAT STA Stop: 12/31/16 10:49 Last Admin: 12/31/16 10:59 Dose: 25 mg Famotidine (Pepcid) 20 mg IVP STAT STA Stop: 12/31/16 09:42 Last Admin: 12/31/16 09:45 Dose: Not Given Non-Admin Reason: Patient Refused Ondansetron HCl (Zofran Inj) 4 mg IVP STAT STA Stop: 12/31/16 09:42 Last Admin: 12/31/16 09:45 Dose: Not Given Non-Admin Reason: Patient Refused - 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 Disposition/Present on Arrival - Present on Arrival Any Indicators Present on Arrival: No History of DVT/PE: No History of Uncontrolled Diabetes: No Urinary Catheter: No History of Decub. Ulcer: No History Surgical Site Infection Following: None - Disposition Have Diagnosis and Disposition been Completed?: Yes Disposition Time: 12:11 Patient Plan: Discharge - Disposition Diagnosis: Abdominal pain, Vomiting Disposition: HOME/ ROUTINE Condition: STABLE Discharge Instructions (ExitCare): Acute Nausea and Vomiting (ED), Acute Abdominal Pain (ED) Print Language: CAY[place] ISLANDER Additional Instructions: Thank you for letting us take care of you today. You were treated for abdominal pain, vomiting. The emergency medical care you received today was directed at your acute symptoms. Please make every effort to go to dialysis today. Return to the Emergency Department if your symptoms worsen, do not improve, or if you have any other problems. Please contact your doctor in 2 days for re-evaluation and follow up. Bring any paperwork you were given at discharge with you along with any medications you are taking to your follow up visit. Our treatment cannot replace ongoing medical care by a primary care provider (PCP) outside of the emergency department. Thank you for allowing the [facility] team to be part of your care today. Referrals: Bianka Jiménez MD [Primary Care Provider] - Follow up with primary Forms: [employer] (Mosotho)
[2016-12-31 10:22] LABS: BASO # 0.03 K/mm3 (0.0-2.0); BASO % 0.4 % (0.0-3.0); EOS # 0.5 (0.0-0.7); EOS % 6.6 % (1.5-5.0); GRAN # 5.23 (1.4-6.5); GRAN % 70.1 % (50.0-68.0); HEMATOCRIT 28.3 % (42.0-52.0); LYMPH % 13.9 % (22.0-35.0); MEAN CORPUSCULAR HEMOGLOBIN 26.7 pg (25.0-35.0); MEAN CORPUSCULAR HGB CONC 31.8 g/dl (31.0-37.0); MEAN PLATELET VOLUME 9.3 fl (7.0-11.0); MONO # 0.7 (0.1-0.6); RED CELL DISTRIBUTION WIDTH 16.7 % (11.5-14.5); WHITE BLOOD COUNT 7.5 10^3/ul (4.5-11.0)
[2016-12-31 10:32] LABS: ALB/GLOB RATIO 0.9 (1.1-1.8); BILIRUBIN,TOTAL 0.4 mg/dL (0.2-1.3); POTASSIUM 4.9 mmol/L (3.6-5.0); TOTAL PROTEIN 6.6 g/dL (5.8-8.3)
[2016-12-31] MEDS ORDERED: DiphenhydrAMINE 50 mg/ml Inj IVP STA (10:48)
[2016-12-31 12:27] VITALS: BP 165/89; PULSE 89
== END 2016-12-31 12:58 | disposition home or self-care (01) ==
LOC: ED 09:17
DX: R10.9 Unspecified abdominal pain (principal); R11.10 Vomiting, unspecified; I10 Essential (primary) hypertension; E11.9 Type 2 diabetes mellitus without complications; K21.9 Gastro-esophageal reflux disease without esophagitis
CPT/HCPCS: 80053; 83690; 85025; 96374; 99283; J1200

== ENCOUNTER 2017-01-12 19:09 | Emergency (ER) | payer MEDICARE, BC ==
[2017-01-12 19:22] VITALS: BP 179/97; PULSE 104; RESP 20; TEMP 98.2; O2SAT 97
--- NOTE | 2017-01-12 19:36 | ED PDOC ---
Arrival/HPI <Brigido Rm - Last Filed: 01/12/17 21:04> - General Historian: Patient - History of Present Illness Time/Duration: Other (earlier today after dialysis) Symptom Onset: Sudden Symptom Course: Unchanged Quality: Stabbing Severity Level: 10 Activities at Onset: Other (dialysis) <Jong iSmon - Last Filed: 01/12/17 21:31> - General Chief Complaint: Abdominal Pain Time Seen by Provider: 01/12/17 19:15 - History of Present Illness Narrative History of Present Illness (Text): 01/12/17 19:33 This is a 46 year old male with PMH of chronic opiate dependency, hypertension, ESRD on HD M,W,F and s/p right renal transplant, diabetes, gastroparesis who is presenting with complaint of severe abdominal pain. The pain started earlier today after dialysis. Patient complaining of multiple bouts of nausea and bilious vomiting as well as intermittent itching. Patient also states that he has lower back pain as well. Patient is normally on PO Dilaudid but states that he has not taken it today. Patient also states that he has an appointment with his pain management physician tomorrow. Patient is well known to this ER as one with a history of chronic opiate dependence who regularly visits this ER as well as others in the surrounding area seeking Dilaudid. PMD: Dr. Jiménez Pain management: Dr. Cruz in [place] (Jong Simon) Past Medical History - Provider Review Nursing Documentation Reviewed: Yes - Infectious Disease Hx of Infectious Diseases: None - Tetanus Immunization Tetanus Immunization: Unknown - Cardiac Hx Hypertension: Yes - Renal Hx Renal Disorder: Yes - Endocrine/Metabolic Hx Diabetes Mellitus Type 1: Yes - Hematological/Oncological Hx Blood Transfusions: (NA) Hx Blood Transfusion Reaction: (NA) - Musculoskeletal/Rheumatological Hx Falls: No - Gastrointestinal Hx Gastritis: Yes Other/Comment: ABD PAIN - Genitourinary/Gynecological Other/Comment: HD - Psychiatric Hx Depression: No Hx Substance Use: No - Surgical History Hx Cholecystectomy: Yes Other/Comment: AV SHUNT - Anesthesia Hx Anesthesia: Yes Hx Anesthesia Reactions: No Hx Malignant Hyperthermia: No - Suicidal Assessment Feels Threatened In Home Enviroment: No <Jong Simon - Last Filed: 01/12/17 21:31> Family/Social History - Physician Review Nursing Documentation Reviewed: Yes Family/Social History: No Known Family HX Smoking Status: Never Smoked Hx Alcohol Use: No Hx Substance Use: No Hx Substance Use Treatment: No <LudydariaJong S - Last Filed: 01/12/17 21:31> Allergies/Home Meds <JagBrigido - Last Filed: 01/12/17 21:04> <AlfredJong S - Last Filed: 01/12/17 21:31> Allergies/Adverse Reactions: Allergies ketamine Adverse Reaction (Severe, Verified 01/12/17 19:11) DIZZINESS patient states that after ketamine had bizzare behavior (no dizziness) Home Medications: Home Meds Medication Instructions Recorded Confirmed HYDROmorphone [Dilaudid] 4 mg PO Q6H PRN 02/28/13 01/12/17 Insulin Glulisine [Apidra] 0 unit SQ TID 12/27/16 01/12/17 Lisinopril [Zestril] 5 mg PO DAILY 12/27/16 01/12/17 Metoclopramide [Reglan] 10 mg PO TID 12/27/16 01/12/17 Ondansetron [Zofran Odt] 4 mg PO PRN PRN 12/27/16 01/12/17 Pantoprazole Sodium [Protonix] 40 mg PO DAILY 12/27/16 01/12/17 amLODIPine [Norvasc] 10 mg PO DAILY 12/27/16 01/12/17 cloNIDine [clonidine HCl] 0.2 mg PO TID 12/27/16 01/12/17 Review of Systems - Review of Systems Constitutional: Normal Eyes: Normal ENT: Normal Respiratory: Normal Cardiovascular: Normal Gastrointestinal: Abdominal Pain (jaiden-umbilical), Nausea, Vomiting (bilious) Genitourinary Male: Normal Musculoskeletal: Normal Skin: Normal Neurological: Normal Endocrine: Normal Psychiatric: Normal <LudydariaJong S - Last Filed: 01/12/17 21:31> Physical Exam Vital Signs Reviewed: Yes Temperature: Afebrile Pulse: Tachycardic Respiratory Rate: Normal Appearance: Positive for: Uncomfortable Pain Distress: Severe Mental Status: Positive for: Alert and Oriented X 3 - Systems Exam Head: Present: Atraumatic, Normocephalic Pupils: Present: PERRL Extroacular Muscles: Present: EOMI Mouth: Present: Moist Mucous Membranes Neck: Present: Normal Range of Motion Respiratory/Chest: Present: Clear to Auscultation, Good Air Exchange. No: Accessory Muscle Use Cardiovascular: Present: Normal S1, S2, Tachycardic (epigastric) Abdomen: Present: Tenderness (jaiden-umbilical), Distention. No: Normal Bowel Sounds (hypoactive) Back: Present: Paraspinal Tenderness Upper Extremity: Present: Normal Inspection, NORMAL PULSES. No: Edema Lower Extremity: Present: Normal Inspection, Edema, NORMAL PULSES. No: CALF TENDERNESS Neurological: Present: GCS=15 Skin: Present: Warm, Dry, Normal Color Psychiatric: Present: Alert, Oriented x 3 <oJng Simon - Last Filed: 01/12/17 21:31> Vital Signs Temp Pulse Resp BP Pulse Ox 01/12/17 19:16 98.2 F 104 H 20 179/97 H 97 Medical Decision Making - Lab Interpretations I have reviewed the lab results: Yes <Brigido Rm - Last Filed: 01/12/17 21:04> <Jong Simon - Last Filed: 01/12/17 21:31> ED Course and Treatment: Impression: Pt seen and evaluated with vice president medical affairs. Pt, whose past medical history includes chronic opiate dependency, hypertension, ESRD on HD M/W/F and s/p right renal transplant, diabetes, gastroparesis, presented for abdominal pain with nausea and vomiting. Also complaining of chronic lower back pain. Aware and agree with clinical findings, plan, and management. Plan: - Labs, lipase -- Zofran -- Pepcid - Benadryl -- Dilaudid -- Reassess and disposition (Brigido Rm) 01/12/17 19:52 CBC, CMP, Lipase Zofran 4 mg IV, Pepcid 20 mg IV, Benadryl 50 mg IV, Dilaudid 1 mg IV 01/12/17 21:09 Given a 2nd dose of Dilaudid 1 mg IV as well as Benadryl 25 mg IV Patient's pain is improved and patient understands to follow up with his pain management physician. (Jong Simon) - Lab Interpretations Lab Results: 01/12/17 19:50 01/12/17 19:50 Lab Results 01/12/17 19:50: Sodium 136, Potassium 3.9, Chloride 97 L, Carbon Dioxide 30, Anion Gap 13, BUN 22 H, Creatinine 6.1 H, Est GFR ( Amer) 12, Est GFR ( Non-Af Amer) 10, Random Glucose 163 H, Calcium 8.8, Total Bilirubin 0.5, AST 36 , ALT 29, Alkaline Phosphatase 98, Total Protein 7.1, Albumin 3.3, Globulin 3.7 , Albumin/Globulin Ratio 0.9 L, Lipase 26 01/12/17 19:50: WBC 5.3 D, RBC 3.36 L, Hgb 9.2 L, Hct 28.0 L, MCV 83.3, MCH 27.4, MCHC 32.9, RDW 17.5 H, Plt Count 348, MPV 8.8, Gran % 65.5, Lymph % (Auto ) 18.5 L, [place] % (Auto) 9.8 H, Eos % (Auto) 6.0 H, Baso % (Auto) 0.2, Gran # 3.47, Lymph # 1.0 L, [place] # 0.5, Eos # 0.3, Baso # 0.01 - Medication Orders Current Medication Orders: Discontinued Medications Diphenhydramine HCl (Benadryl) 50 mg IVP STAT STA Stop: 01/12/17 19:38 Last Admin: 01/12/17 19:49 Dose: 50 mg Diphenhydramine HCl (Benadryl) 25 mg IVP STAT STA Stop: 01/12/17 21:08 Last Admin: 01/12/17 21:16 Dose: 25 mg Famotidine (Pepcid) 20 mg IVP STAT STA Stop: 01/12/17 19:36 Last Admin: 01/12/17 19:48 Dose: 20 mg Hydromorphone HCl (Dilaudid) 1 mg IVP STAT STA Stop: 01/12/17 19:48 Last Admin: 01/12/17 19:59 Dose: 1 mg Hydromorphone HCl (Dilaudid) 1 mg IVP STAT STA Stop: 01/12/17 21:08 Last Admin: 01/12/17 21:16 Dose: 1 mg Ondansetron HCl (Zofran Inj) 4 mg IVP STAT STA Stop: 01/12/17 19:36 Last Admin: 01/12/17 19:48 Dose: 4 mg - 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 <AlfredJong Silvestre - Last Filed: 01/12/17 21:31> Disposition/Present on Arrival <Brigido Rm - Last Filed: 01/12/17 21:04> - Present on Arrival Any Indicators Present on Arrival: No History of DVT/PE: No History of Uncontrolled Diabetes: Yes Urinary Catheter: No History of Decub. Ulcer: No History Surgical Site Infection Following: None - Disposition Have Diagnosis and Disposition been Completed?: Yes Disposition Time: 21:30 <Jong Simon Silvestre - Last Filed: 01/12/17 21:31> - Disposition Diagnosis: Abdominal pain Disposition: HOME/ ROUTINE Patient Problems: Current Active Problems Problem Status Onset Abdominal pain Acute Condition: STABLE Additional Instructions: Please follow up with Dr. Jiménez your primary doctor within 1 week. Please follow up with Dr. Cruz your pain management doctor at your appointment tomorrow. If there are any emergent symptoms, please go to the emergency room. Referrals: Bianka Jiménez MD [Medical Doctor] - Follow up with primary Forms: [employer] (Nepali)
[2017-01-12] MEDS ORDERED: DiphenhydrAMINE 50 mg/ml Inj IVP STA ×2 (19:37→21:07)
[2017-01-12] MEDS ORDERED: HYDROmorphone 1 mg/ml ISec IVP STA ×2 (19:47→21:07)
[2017-01-12 19:54] VITALS: BMI 33.8
[2017-01-12 19:59] LABS: BASO # 0.01 K/mm3 (0.0-2.0); BASO % 0.2 % (0.0-3.0); EOS # 0.3 (0.0-0.7); GRAN # 3.47 (1.4-6.5); GRAN % 65.5 % (50.0-68.0); LYMPH % 18.5 % (22.0-35.0); MEAN CELL VOLUME 83.3 fl (80.0-105.0); MEAN CORPUSCULAR HEMOGLOBIN 27.4 pg (25.0-35.0); MEAN CORPUSCULAR HGB CONC 32.9 g/dl (31.0-37.0); MEAN PLATELET VOLUME 8.8 fl (7.0-11.0); MONO # 0.5 (0.1-0.6); MONO % 9.8 % (1.0-6.0); RED CELL DISTRIBUTION WIDTH 17.5 % (11.5-14.5); WHITE BLOOD COUNT 5.3 10^3/ul (4.5-11.0)
[2017-01-12 20:13] LABS: ALB/GLOB RATIO 0.9 (1.1-1.8); BILIRUBIN,TOTAL 0.5 mg/dL (0.2-1.3); CALCIUM 8.8 mg/dL (8.4-10.5); POTASSIUM 3.9 mmol/L (3.6-5.0); TOTAL PROTEIN 7.1 g/dL (5.8-8.3)
== END 2017-01-12 22:00 | disposition home or self-care (01) ==
LOC: ED 19:09
DX: R10.9 Unspecified abdominal pain (principal)
CPT/HCPCS: 80053; 83690; 85025; 96374; 96375; 96376; 99283; J1170; J1200; J2405

== ENCOUNTER 2017-01-22 02:29 | Emergency (ER) | payer MEDICARE, BC ==
[2017-01-22 02:30] VITALS: BMI 33.8
[2017-01-22 02:37] VITALS: TEMP 97.8; O2SAT 97
--- NOTE | 2017-01-22 02:51 | ED PDOC ---
Arrival/HPI - General Chief Complaint: Abdominal Pain Time Seen by Provider: 01/22/17 02:40 Historian: Patient - History of Present Illness Narrative History of Present Illness (Text): 01/22/17 02:51 Hardeep Contreras is a 46 year old male, whose past medical history includes hypertension, Type 2 diabetes, gastritis, ESRD, status post renal transplant, and gastritis, who presents to the Emergency department complaining of abdominal pain since yesterday. Patient requesting IV pain medication. Patient has been seen on multiple occasions for similar complaints here, [facility] , and [facility]. Patient denies any fever, chills, chest pain, shortness of breath, nausea, vomiting, diarrhea, urinary symptoms, back pain, neck pain, headache, dizziness, or any other complaints. Symptom Onset: Gradual Symptom Course: Unchanged Activities at Onset: Light Context: Home Past Medical History - Provider Review Nursing Documentation Reviewed: Yes - Infectious Disease Hx of Infectious Diseases: None - Tetanus Immunization Tetanus Immunization: Unknown - Cardiac Hx Hypertension: Yes - Renal Hx Renal Disorder: Yes - Endocrine/Metabolic Hx Diabetes Mellitus Type 1: Yes - Hematological/Oncological Hx Blood Transfusions: (NA) Hx Blood Transfusion Reaction: (NA) Other/Comment: "blood infection" being tx by infectious disease. PICC line - Musculoskeletal/Rheumatological Hx Falls: No - Gastrointestinal Other/Comment: gastrophoresis, pt has gastric pacemaker inplanted 2010 - Genitourinary/Gynecological Other/Comment: HD MWF - Psychiatric Hx Depression: No Hx Substance Use: No - Surgical History Other/Comment: right kidney transplant 2009 - Anesthesia Hx Anesthesia: Yes Hx Anesthesia Reactions: No Hx Malignant Hyperthermia: No - Suicidal Assessment Feels Threatened In Home Enviroment: No Family/Social History - Physician Review Nursing Documentation Reviewed: Yes Family/Social History: Unknown Family HX Smoking Status: Never Smoked Hx Alcohol Use: No Hx Substance Use: No Hx Substance Use Treatment: No Allergies/Home Meds Allergies/Adverse Reactions: Allergies ketamine Adverse Reaction (Severe, Verified 01/12/17 19:11) DIZZINESS patient states that after ketamine had bizzare behavior (no dizziness) Home Medications: Home Meds Medication Instructions Recorded Confirmed HYDROmorphone [Dilaudid] 4 mg PO Q6H PRN 02/28/13 01/22/17 Insulin Glulisine [Apidra] 0 unit SQ TID 12/27/16 01/22/17 Lisinopril [Zestril] 5 mg PO DAILY 12/27/16 01/22/17 Metoclopramide [Reglan] 10 mg PO TID 12/27/16 01/22/17 Ondansetron [Zofran Odt] 4 mg PO PRN PRN 12/27/16 01/22/17 Pantoprazole Sodium [Protonix] 40 mg PO DAILY 12/27/16 01/22/17 amLODIPine [Norvasc] 10 mg PO DAILY 12/27/16 01/22/17 cloNIDine [clonidine HCl] 0.2 mg PO TID 12/27/16 01/22/17 Review of Systems - Physician Review All systems were reviewed & negative as marked: Yes - Review of Systems Constitutional: Normal. absent: Fevers Eyes: Normal ENT: Normal Respiratory: Normal. absent: SOB, Cough Cardiovascular: Normal. absent: Chest Pain Gastrointestinal: Abdominal Pain. absent: Diarrhea, Vomiting Genitourinary Male: Normal. absent: Dysuria, Frequency, Hematuria, Urinary Output Changes Musculoskeletal: Normal. absent: Back Pain, Neck Pain Skin: Normal. absent: Rash Neurological: Normal. absent: Headache, Dizziness Endocrine: Normal Hemo/Lymphatic: Normal Psychiatric: Normal Physical Exam Vital Signs Reviewed: Yes Vital Signs Temp Pulse Resp BP Pulse Ox 01/22/17 02:30 97.8 F 103 H 22 159/97 H 97 Temperature: Afebrile Blood Pressure: Hypertensive Pulse: Regular Respiratory Rate: Normal Appearance: Positive for: Well-Appearing, Non-Toxic, Comfortable Pain Distress: None Mental Status: Positive for: Alert and Oriented X 3 - Systems Exam Head: Present: Atraumatic, Normocephalic Pupils: Present: PERRL Extroacular Muscles: Present: EOMI Conjunctiva: Present: Normal Mouth: Present: Moist Mucous Membranes Neck: Present: Normal Range of Motion Respiratory/Chest: Present: Clear to Auscultation, Good Air Exchange. No: Respiratory Distress, Accessory Muscle Use Cardiovascular: Present: Regular Rate and Rhythm, Normal S1, S2. No: Murmurs Abdomen: Present: Normal Bowel Sounds. No: Tenderness, Distention, Peritoneal Signs Back: Present: Normal Inspection Upper Extremity: Present: Normal Inspection. No: Cyanosis, Edema Lower Extremity: Present: Normal Inspection. No: Edema Neurological: Present: GCS=15, CN II-XII Intact, Speech Normal Skin: Present: Warm, Dry, Normal Color. No: Rashes Psychiatric: Present: Alert, Oriented x 3, Normal Insight, Normal Concentration Medical Decision Making ED Course and Treatment: 01/22/17 02:51 Impression: 46 year old male complaining of abdominal pain since yesterday. Plan: -- EKG -- Labs -- Chest X-ray -- Benadryl -- Dilaudid -- Reassess and disposition Prior Visits: Notes and results from previous visits were reviewed. Progress Notes: Reviewed EKG, NSR at 99 bpm. Non-specific T wave changes. 01/22/17 04:48 Reviewed radiology, Chest X-ray shows no acute processes. - Lab Interpretations Lab Results: 01/22/17 03:00 01/22/17 03:00 Lab Results 01/22/17 03:00: WBC 5.1, RBC 3.11 L, Hgb 8.3 L, Hct 25.9 L, MCV 83.3, MCH 26.7, MCHC 32.0, RDW 17.6 H, Plt Count 336, MPV 9.1 01/22/17 03:00: Sodium 140, Potassium 4.3, Chloride 102, Carbon Dioxide 28, Anion Gap 14, BUN 28 H, Creatinine 6.9 H, Est GFR ( Amer) 10, Est GFR ( Non-Af Amer) 9, Random Glucose 156 H, Calcium 9.3, Total Bilirubin 0.6, AST 38, ALT 35, Alkaline Phosphatase 100, Total Protein 6.9, Albumin 3.3, Globulin 3.6, Albumin/Globulin Ratio 0.9 L I have reviewed the lab results: Yes - RAD Interpretation Radiology Orders: 01/22/17 02:54 CHEST PORTABLE [RAD] Stat Well Tester: ED Physician - EKG Interpretation Interpreted by ED Physician: Yes Type: 12 lead EKG - Medication Orders Current Medication Orders: Diphenhydramine HCl (Benadryl) 25 mg IVP ONCE ONE Stop: 01/22/17 06:39 Discontinued Medications Diphenhydramine HCl (Benadryl) 50 mg IVP ONCE STA Stop: 01/22/17 02:57 Last Admin: 01/22/17 03:39 Dose: 50 mg Hydromorphone HCl (Dilaudid) 1 mg IVP STAT STA Stop: 01/22/17 02:57 Last Admin: 01/22/17 03:40 Dose: 1 mg - Scribe Statement The provider has reviewed the documentation as recorded by the Sunday Pardo Provider Cliffordibe Attestation: All medical record entries made by the Scribe were at my direction and personally dictated by me. I have reviewed the chart and agree that the record accurately reflects my personal performance of the history, physical exam, medical decision making, and the department course for this patient. I have also personally directed, reviewed, and agree with the discharge instructions and disposition. Disposition/Present on Arrival - Present on Arrival Any Indicators Present on Arrival: No History of DVT/PE: No History of Uncontrolled Diabetes: No Urinary Catheter: No History of Decub. Ulcer: No History Surgical Site Infection Following: None - Disposition Have Diagnosis and Disposition been Completed?: Yes Diagnosis: Abdominal pain Disposition: HOME/ ROUTINE Disposition Time: 06:39 Patient Plan: Discharge Condition: STABLE Discharge Instructions (ExitCare): Abdominal Pain (ED) Additional Instructions: Follow up with your doctor this week/any recurrent worsening symptoms return to the emergency room Forms: [employer] (Bulgarian)
[2017-01-22] MEDS ORDERED: HYDROmorphone 1 mg/ml ISec IVP STA (02:56)
[2017-01-22] MEDS ORDERED: DiphenhydrAMINE 50 mg/ml Inj IVP STA (02:56)
[2017-01-22 03:42] LABS: HEMATOCRIT 25.9 % (42.0-52.0); MEAN CELL VOLUME 83.3 fl (80.0-105.0); MEAN CORPUSCULAR HEMOGLOBIN 26.7 pg (25.0-35.0); MEAN PLATELET VOLUME 9.1 fl (7.0-11.0); RED CELL DISTRIBUTION WIDTH 17.6 % (11.5-14.5); WHITE BLOOD COUNT 5.1 10^3/ul (4.5-11.0)
[2017-01-22 03:58] LABS: ALB/GLOB RATIO 0.9 (1.1-1.8); BILIRUBIN,TOTAL 0.6 mg/dL (0.2-1.3); CALCIUM 9.3 mg/dL (8.4-10.5); POTASSIUM 4.3 mmol/L (3.6-5.0); TOTAL PROTEIN 6.9 g/dL (5.8-8.3)
[2017-01-22] MEDS ORDERED: DiphenhydrAMINE 50 mg/ml Inj IVP ONE (06:38)
[2017-01-22 07:04] VITALS: BP 147/86; PULSE 84; RESP 20
--- NOTE | 2017-01-22 12:49 | RAD ---
HISTORY: abdominal pain COMPARISON: Comparison chest dated 12/18/2012 comparison also made with CT scan of the abdomen and pelvis dated 12/27/2016 which imaged both lung bases FINDINGS: Right-sided PICC line, tip of which is poorly seen though however distal aspect does extend into the SVC LUNGS: Poor inspiration with low lung volumes, crowded bronchovascular markings and mild bibasilar atelectasis. . Developing infiltrates could be excluded with followup radiographs. The central pulmonary vasculature is also slightly congested in appearance though this is also felt to be secondary to poor inspiration however the possibility of mild developing or mild chronic compensated pulmonary edema not excluded. PLEURA: No significant pleural effusion identified, no pneumothorax apparent. CARDIOVASCULAR: Normal. OSSEOUS STRUCTURES: Radiopaque metallic structure overlies the mid mediastinum which could represent a spinal canal electrode. Clinical correlation recommended VISUALIZED UPPER ABDOMEN: Normal. OTHER FINDINGS: None. IMPRESSION: Poor inspiration with low lung volumes, crowded bronchovascular markings and mild bibasilar atelectasis. . Developing infiltrates could be excluded with followup radiographs. The central pulmonary vasculature is also slightly congested in appearance though this is also felt to be secondary to poor inspiration however the possibility of mild developing or mild chronic compensated pulmonary edema not excluded.
--- NOTE | 2017-01-22 13:18 | CARD ---
APPROVED REPORT EKG Measurement Heart [id number] <Conclusion> Normal sinus rhythm Nonspecific T wave abnormality Prolonged QT Abnormal ECG
== END 2017-01-22 07:04 | disposition home or self-care (01) ==
LOC: ED 02:29
DX: R10.9 Unspecified abdominal pain (principal); I12.0 Hypertensive chronic kidney disease with stage 5 chronic kidney disease or end stage renal disease; N18.6 End stage renal disease; Z94.0 Kidney transplant status; E10.9 Type 1 diabetes mellitus without complications; Z79.4 Long term (current) use of insulin
CPT/HCPCS: 71010; 80053; 85027; 93005; 96374; 96375; 96376; 99284; J1170; J1200

== ENCOUNTER 2017-01-23 03:56 | Emergency (ER) | payer MEDICARE, BC ==
[2017-01-23 04:08] VITALS: BMI 34.5
[2017-01-23] MEDS ORDERED: Pantoprazole 40 MG in Sodium Chloride 0.9% 100 ML IV STA (04:11)
--- NOTE | 2017-01-23 04:11 | ED PDOC ---
Arrival/HPI - General Time Seen by Provider: 01/23/17 04:05 Historian: Patient - History of Present Illness Narrative History of Present Illness (Text): 01/23/17 04:11 Hardeep Contreras is a 46 year old male, whose past medical history includes hypertension, Type 2 diabetes, gastritis, ESRD, status post renal transplant ( failed in 05/25) , and gastritis, who presents to the Emergency department complaining of abdominal pain. Patient states he has been experiencing diffuse abdominal pain radiating to his left flank since yesterday. Patient was seen in the Emergency department yesterday for similar complaints and discharged home. Patient denies any fever, chills, chest pain, shortness of breath, nausea, vomiting, diarrhea, back pain, neck pain, headache, dizziness, or any other complaints. Time/Duration: Other (tonight) Symptom Onset: Gradual Symptom Course: Unchanged Activities at Onset: Light Context: Home Past Medical History - Provider Review Nursing Documentation Reviewed: Yes - Infectious Disease Hx of Infectious Diseases: None - Tetanus Immunization Tetanus Immunization: Unknown - Cardiac Hx Hypertension: Yes - Renal Hx Renal Disorder: Yes - Endocrine/Metabolic Hx Diabetes Mellitus Type 1: Yes - Hematological/Oncological Hx Blood Transfusions: (NA) Hx Blood Transfusion Reaction: (NA) Other/Comment: "blood infection" being tx by infectious disease. PICC line - Musculoskeletal/Rheumatological Hx Falls: No - Gastrointestinal Other/Comment: gastrophoresis, pt has gastric pacemaker inplanted 2010 - Genitourinary/Gynecological Other/Comment: HD MWF - Psychiatric Hx Depression: No Hx Substance Use: No - Surgical History Other/Comment: right kidney transplant 2009 - Anesthesia Hx Anesthesia: Yes Hx Anesthesia Reactions: No Hx Malignant Hyperthermia: No - Suicidal Assessment Feels Threatened In Home Enviroment: No Family/Social History - Physician Review Nursing Documentation Reviewed: Yes Family/Social History: Unknown Family HX Smoking Status: Never Smoked Hx Alcohol Use: No Hx Substance Use: No Hx Substance Use Treatment: No Allergies/Home Meds Allergies/Adverse Reactions: Allergies ketamine Adverse Reaction (Severe, Verified 01/23/17 04:09) DIZZINESS patient states that after ketamine had bizzare behavior (no dizziness) Home Medications: Home Meds Medication Instructions Recorded Confirmed HYDROmorphone [Dilaudid] 4 mg PO Q6H PRN 02/28/13 01/23/17 Insulin Glulisine [Apidra] 0 unit SQ TID 12/27/16 01/23/17 Lisinopril [Zestril] 5 mg PO DAILY 12/27/16 01/23/17 Metoclopramide [Reglan] 10 mg PO TID 12/27/16 01/23/17 Ondansetron [Zofran Odt] 4 mg PO PRN PRN 12/27/16 01/23/17 Pantoprazole Sodium [Protonix] 40 mg PO DAILY 12/27/16 01/23/17 amLODIPine [Norvasc] 10 mg PO DAILY 12/27/16 01/23/17 cloNIDine [clonidine HCl] 0.2 mg PO TID 12/27/16 01/23/17 Review of Systems - Physician Review All systems were reviewed & negative as marked: Yes - Review of Systems Constitutional: Normal. absent: Fevers Eyes: Normal ENT: Normal Respiratory: Normal. absent: SOB, Cough Cardiovascular: Normal. absent: Chest Pain Gastrointestinal: Abdominal Pain. absent: Nausea, Vomiting Genitourinary Male: Normal. absent: Dysuria, Frequency, Hematuria, Urinary Output Changes Musculoskeletal: Normal. absent: Back Pain, Neck Pain Skin: Normal. absent: Rash Neurological: Normal. absent: Headache, Dizziness Endocrine: Normal Hemo/Lymphatic: Normal Psychiatric: Normal Physical Exam Vital Signs Reviewed: Yes Vital Signs Temp Pulse Resp BP Pulse Ox 01/23/17 07:20 73 16 152/82 H 98 01/23/17 06:00 73 16 166/98 H 97 01/23/17 04:11 97.8 F 93 H 18 193/113 H 100 Temperature: Afebrile Blood Pressure: Hypertensive Pulse: Regular Respiratory Rate: Normal Appearance: Positive for: Well-Appearing, Non-Toxic, Comfortable Pain Distress: None Mental Status: Positive for: Alert and Oriented X 3 - Systems Exam Head: Present: Atraumatic, Normocephalic Pupils: Present: PERRL Extroacular Muscles: Present: EOMI Conjunctiva: Present: Normal Mouth: Present: Moist Mucous Membranes Neck: Present: Normal Range of Motion Respiratory/Chest: Present: Clear to Auscultation, Good Air Exchange. No: Respiratory Distress, Accessory Muscle Use Cardiovascular: Present: Regular Rate and Rhythm, Normal S1, S2. No: Murmurs Abdomen: Present: Tenderness (Diffuse abdominal tenderness), Normal Bowel Sounds. No: Distention, Peritoneal Signs Back: Present: Normal Inspection Upper Extremity: Present: Normal Inspection. No: Cyanosis, Edema Lower Extremity: Present: Normal Inspection. No: Edema Neurological: Present: GCS=15, CN II-XII Intact, Speech Normal Skin: Present: Warm, Dry, Normal Color. No: Rashes Psychiatric: Present: Alert, Oriented x 3, Normal Insight, Normal Concentration Medical Decision Making ED Course and Treatment: 01/23/17 04:11 Impression: 46 year old male complaining of diffuse abdominal pain tonight. Plan: -- CT Abdomen and Pelvis w/o contrast -- EKG -- Labs, cardiac enzymes, amylase, lipase -- UA -- Protonix -- Zofran -- Benadryl -- Dilaudid -- Reassess and disposition Prior Visits: Notes and results from previous visits were reviewed. On 01/22/17, pt was seen in the Emergency department for abdominal pain. Pt was d/c omhe. Progress Notes: 01/23/17 05:39 Reviewed radiology, CT Abdomen and Pelvis shows: 1. There are right greater than left pleural effusions. There is small amount of associated atelectasis nearby both bases. 2. There is mild interlobular septal thickening at the bases. This is nonspecific but can be seen in pulmonary edema or lymphangitic carcinomatosis. 3. There is a pericardial effusion measuring 18 mm on series 2, image 11. 4. There is a right lower quadrant/right upper pelvic kidney which appears grossly intact without evidence for high grade hydronephrosis. 5. Additional incidental and/or chronic findings as described. 01/23/17 05:47 Reviewed EKG, sinus tachycardia at 102 bpm. Non-specific T wave changes. - Lab Interpretations Lab Results: 01/23/17 04:40 01/23/17 04:40 Lab Results 01/23/17 04:40: Sodium 141, Potassium 4.6, Chloride 101, Carbon Dioxide 26, Anion Gap 19, BUN 39 H, Creatinine 9.6 H*, Est GFR ( Amer) 7, Est GFR ( Non-Af Amer) 6, Random Glucose 138 H, Calcium 9.2, Total Bilirubin 0.7, AST 32, ALT 37, Alkaline Phosphatase 98, Lactate Dehydrogenase 532, Total Creatine Kinase 340 H, CK-MB (CK-2) 4.6 H, CK-MB (CK-2) % Cancelled, Troponin I 0.04 D, Total Protein 7.4, Albumin 3.5, Globulin 3.9, Albumin/Globulin Ratio 0.9 L, Amylase 65, Lipase 25 01/23/17 04:40: PT 12.3 H, INR 1.14 H, APTT 32.9 H 01/23/17 04:40: WBC 5.2, RBC 3.21 L, Hgb 8.8 L, Hct 26.8 L, MCV 83.5, MCH 27.4, MCHC 32.8, RDW 17.6 H, Plt Count 363, MPV 9.4, Gran % 62.1, Lymph % (Auto) 23.8 , [place] % (Auto) 7.7 H, Eos % (Auto) 6.0 H, Baso % (Auto) 0.4, Gran # 3.24, Lymph # 1.2, [place] # 0.4, Eos # 0.3, Baso # 0.02 I have reviewed the lab results: Yes - RAD Interpretation Narrative RAD Interpretations (Text): CT Abdomen and Pelvis shows: Lower thorax: There are right greater than left pleural effusions. There is small amount of associated atelectasis nearby both bases. There is mild interlobular septal thickening at the bases. This is nonspecific but can be seen in pulmonary edema or lymphangitic carcinomatosis. There is a pericardial effusion measuring 18 mm on series 2, image 11. Visualized heart is not enlarged. ABDOMEN: Liver: There are no focal liver lesions present. Gallbladder and bile ducts: There has been a cholecystectomy. No ductal dilation. Pancreas: Pancreas is atrophic. No ductal dilation. Spleen: The spleen is normal. Adrenals: The adrenal glands are normal. Kidneys and ureters: There is a right lower quadrant/right upper pelvic kidney which appears grossly intact without evidence for high grade hydronephrosis. Both [place] kidneys are extensively atrophic Stomach and bowel: The stomach is normal. Colonic constipation is present. There is no evidence of intestinal obstruction. No mucosal thickening. Appendix: No findings to suggest acute appendicitis. PELVIS: Bladder: Bladder is decompressed. No stones. Reproductive: The prostate gland and seminal vesicles are normal. ABDOMEN and PELVIS: Intraperitoneal space: There is no evidence of free intraperitoneal fluid. There is no free intraperitoneal air. Bones/joints: There are mild degenerative changes present. No acute fracture. No dislocation. Soft tissues: Unremarkable. Vasculature: The aorta demonstrates mild atherosclerotic calcification. No abdominal aortic aneurysm. Lymph nodes: There is no evidence of lymphadenopathy. IMPRESSION: 1. There are right greater than left pleural effusions. There is small amount of associated atelectasis nearby both bases. 2. There is mild interlobular septal thickening at the bases. This is nonspecific but can be seen in pulmonary edema or lymphangitic carcinomatosis. 3. There is a pericardial effusion measuring 18 mm on series 2, image 11. 4. There is a right lower quadrant/right upper pelvic kidney which appears grossly intact without evidence for high grade hydronephrosis. 5. Additional incidental and/or chronic findings as described. Radiology Orders: 01/23/17 04:11 ABD & PELVIS W/O PO OR IV CONT [CT] Stat [employer]el[employer] Consultant: Radiologist - EKG Interpretation Interpreted by ED Physician: Yes Type: 12 lead EKG - Medication Orders Current Medication Orders: Discontinued Medications Diphenhydramine HCl (Benadryl) 25 mg IVP ONCE ONE Stop: 01/23/17 04:13 Last Admin: 01/23/17 04:54 Dose: 25 mg Diphenhydramine HCl (Benadryl) 25 mg IVP ONCE ONE Stop: 01/23/17 06:04 Last Admin: 01/23/17 06:23 Dose: 25 mg Hydromorphone HCl (Dilaudid) 2 mg IVP STAT STA Stop: 01/23/17 04:13 Last Admin: 01/23/17 04:54 Dose: 2 mg Hydromorphone HCl (Dilaudid) 1 mg IVP STAT STA Stop: 01/23/17 06:04 Last Admin: 01/23/17 06:23 Dose: 1 mg Pantoprazole Sodium 40 mg/ (Sodium Chloride) 100 mls @ 400 mls/hr IV STAT STA Stop: 01/23/17 04:25 Last Admin: 01/23/17 04:55 Dose: 400 mls/hr Ondansetron HCl (Zofran Inj) 4 mg IVP STAT STA Stop: 01/23/17 04:12 Last Admin: 01/23/17 04:54 Dose: 4 mg Ondansetron HCl (Zofran Inj) 4 mg IVP STAT STA Stop: 01/23/17 04:13 Last Admin: 01/23/17 04:56 Dose: Ondansetron HCl (Zofran Inj) 4 mg IVP STAT STA Stop: 01/23/17 06:04 Last Admin: 01/23/17 06:24 Dose: 4 mg Pantoprazole Sodium (Protonix Inj) Confirm Administered Dose 40 mg .ROUTE .STK- MED ONE Stop: 01/23/17 04:25 Last Admin: 01/23/17 04:56 Dose: - Scribe Statement The provider has reviewed the documentation as recorded by the Sunday Pardo Provider Scribe Attestation: All medical record entries made by the Cliffordibronak were at my direction and personally dictated by me. I have reviewed the chart and agree that the record accurately reflects my personal performance of the history, physical exam, medical decision making, and the department course for this patient. I have also personally directed, reviewed, and agree with the discharge instructions and disposition. Disposition/Present on Arrival - Present on Arrival Any Indicators Present on Arrival: No History of DVT/PE: No History of Uncontrolled Diabetes: No Urinary Catheter: No History Surgical Site Infection Following: None - Disposition Have Diagnosis and Disposition been Completed?: Yes Diagnosis: Diabetic gastroparesis associated with type 2 diabetes mellitus Disposition: HOME/ ROUTINE Disposition Time: 07:00 Condition: GOOD Discharge Instructions (ExitCare): Abdominal Pain (ED) Forms: [employer] ([employer])
[2017-01-23] MEDS ORDERED: HYDROmorphone 2 mg/ml ISec IVP STA (04:12)
[2017-01-23] MEDS ORDERED: DiphenhydrAMINE 50 mg/ml Inj IVP ONE ×2 (04:12→06:03)
[2017-01-23 04:18] VITALS: TEMP 97.8
[2017-01-23 04:57] LABS: BASO # 0.02 K/mm3 (0.0-2.0); BASO % 0.4 % (0.0-3.0); EOS # 0.3 (0.0-0.7); GRAN # 3.24 (1.4-6.5); GRAN % 62.1 % (50.0-68.0); HEMATOCRIT 26.8 % (42.0-52.0); LYMPH # 1.2 (1.2-3.4); LYMPH % 23.8 % (22.0-35.0); MEAN CELL VOLUME 83.5 fl (80.0-105.0); MEAN CORPUSCULAR HEMOGLOBIN 27.4 pg (25.0-35.0); MEAN CORPUSCULAR HGB CONC 32.8 g/dl (31.0-37.0); MEAN PLATELET VOLUME 9.4 fl (7.0-11.0); MONO # 0.4 (0.1-0.6); MONO % 7.7 % (1.0-6.0); RED CELL DISTRIBUTION WIDTH 17.6 % (11.5-14.5); WHITE BLOOD COUNT 5.2 10^3/ul (4.5-11.0)
[2017-01-23 05:04] LABS: ALB/GLOB RATIO 0.9 (1.1-1.8); BILIRUBIN,TOTAL 0.7 mg/dL (0.2-1.3); CALCIUM 9.2 mg/dL (8.4-10.5); INR 1.14 (0.93-1.08); PARTIAL THROMBOPLASTIN TIME 32.9 Seconds (23.7-30.8); POTASSIUM 4.6 mmol/L (3.6-5.0); TOTAL PROTEIN 7.4 g/dL (5.8-8.3)
--- NOTE | 2017-01-23 05:35 | CT ---
EXAM: CT Abdomen and Pelvis Without Intravenous Contrast CLINICAL HISTORY: 46 years old, male; Pain; Abdominal pain; Generalized; Prior surgery; Surgery date: 6+ months; Surgery type: Rt kidney transplant. Gastric pacemaker. Gb removed; Additional info: Abd pain with nausea and vomiting since this morning. TECHNIQUE: Axial computed tomography images of the abdomen and pelvis without intravenous contrast. All CT scans at this facility use one or more dose reduction techniques, viz.: automated exposure control; ma/kV adjustment per patient size (including targeted exams where dose is matched to indication; i.e. head); or iterative reconstruction technique. Coronal and sagittal reformatted images were created and reviewed. COMPARISON: CT - ABD PELVIS PO CONTRA 12/27/2016 10:00:57 PM FINDINGS: Lower thorax: There are right greater than left pleural effusions. There is small amount of associated atelectasis nearby both bases. There is mild interlobular septal thickening at the bases. This is nonspecific but can be seen in pulmonary edema or lymphangitic carcinomatosis. There is a pericardial effusion measuring 18 mm on series 2, image 11. Visualized heart is not enlarged. ABDOMEN: Liver: There are no focal liver lesions present. Gallbladder and bile ducts: There has been a cholecystectomy. No ductal dilation. Pancreas: Pancreas is atrophic. No ductal dilation. Spleen: The spleen is normal. Adrenals: The adrenal glands are normal. Kidneys and ureters: There is a right lower quadrant/right upper pelvic kidney which appears grossly intact without evidence for high grade hydronephrosis. Both [place] kidneys are extensively atrophic Stomach and bowel: The stomach is normal. Colonic constipation is present. There is no evidence of intestinal obstruction. No mucosal thickening. Appendix: No findings to suggest acute appendicitis. PELVIS: Bladder: Bladder is decompressed. No stones. Reproductive: The prostate gland and seminal vesicles are normal. ABDOMEN and PELVIS: Intraperitoneal space: There is no evidence of free intraperitoneal fluid. There is no free intraperitoneal air. Bones/joints: There are mild degenerative changes present. No acute fracture. No dislocation. Soft tissues: Unremarkable. Vasculature: The aorta demonstrates mild atherosclerotic calcification. No abdominal aortic aneurysm. Lymph nodes: There is no evidence of lymphadenopathy. IMPRESSION: 1. There are right greater than left pleural effusions. There is small amount of associated atelectasis nearby both bases. 2. There is mild interlobular septal thickening at the bases. This is nonspecific but can be seen in pulmonary edema or lymphangitic carcinomatosis. 3. There is a pericardial effusion measuring 18 mm on series 2, image 11. 4. There is a right lower quadrant/right upper pelvic kidney which appears grossly intact without evidence for high grade hydronephrosis. 5. Additional incidental and/or chronic findings as described.
[2017-01-23 05:47] LABS: TROPONIN I 0.04 ng/mL
[2017-01-23] MEDS ORDERED: HYDROmorphone 1 mg/ml ISec IVP STA (06:03)
[2017-01-23 06:57] VITALS: PULSE 73; RESP 16
[2017-01-23 07:21] VITALS: BP 152/82; O2SAT 98
--- NOTE | 2017-01-23 13:41 | CARD ---
APPROVED REPORT EKG Measurement Heart [id number] <Conclusion> Sinus tachycardia Nonspecific T wave abnormality Abnormal ECG
== END 2017-01-23 07:26 | disposition home or self-care (01) ==
LOC: ED 03:56
DX: E11.43 Type 2 diabetes mellitus with diabetic autonomic (poly)neuropathy (principal); K31.84 Gastroparesis; I12.0 Hypertensive chronic kidney disease with stage 5 chronic kidney disease or end stage renal disease; N18.6 End stage renal disease; Z94.0 Kidney transplant status
CPT/HCPCS: 74176; 80053; 82150; 82550; 82553; 83615; 83690; 84484; 85025; 85610; 85730; 93005; 96374; 96375; 96376; 99284; C9113; J1170; J1200; J2405

== ENCOUNTER 2017-01-24 05:33 | Observation (INO) | payer MEDICARE, BC ==
[2017-01-24 05:33] VITALS: BMI 34.5
[2017-01-24 05:48] VITALS: TEMP 97.8
--- NOTE | 2017-01-24 05:57 | ED PDOC ---
Arrival/HPI - General Chief Complaint: Chest Pain Time Seen by Provider: 01/24/17 05:57 Historian: Patient - History of Present Illness Narrative History of Present Illness (Text): 01/24/17 05:57 Hardeep Contreras is a 46 year old male, whose past medical history includes hypertension, Type 2 diabetes, gastritis, ESRD, status post renal transplant ( failed in 05/25) , and gastritis, who presents to the Emergency department complaining of abdominal pain, chest pain,and shortness of breath prior to arrival. Patient states that he woke up from the shortness of breath and rushed to the hospital. Patient denies any fever, chills, diarrhea, urinary symptoms, back pain, neck pain, headache, dizziness, or any other complaints. Time/Duration: Prior to Arrival Symptom Onset: Gradual Symptom Course: Unchanged Severity Level: Mild Activities at Onset: Rest Context: Home Past Medical History - Provider Review Nursing Documentation Reviewed: Yes - Infectious Disease Hx of Infectious Diseases: None - Tetanus Immunization Tetanus Immunization: Unknown - Cardiac Hx Hypertension: Yes - Pulmonary Hx Respiratory Disorders: No - Neurological Hx Neurological Disorder: No - HEENT Hx HEENT Disorder: No - Renal Hx Renal Disorder: Yes Hx Dialysis: Yes (m/w/f at [facility]) Other/Comment: right kidney transplant 2009 - Endocrine/Metabolic Hx Diabetes Mellitus Type 1: Yes - Hematological/Oncological Hx Blood Transfusions: (NA) Hx Blood Transfusion Reaction: (NA) Other/Comment: "blood infection" being tx by infectious disease. PICC line - Integumentary Hx Dermatological Disorder: No - Musculoskeletal/Rheumatological Hx Musculoskeletal Disorders: No Hx Falls: No - Gastrointestinal Other/Comment: gastrophoresis, pt has gastric pacemaker inplanted 2010 - Genitourinary/Gynecological Other/Comment: HD MWF - Psychiatric Hx Depression: No Hx Substance Use: No - Surgical History Hx Kidney Transplant: Yes (right 2009) Other/Comment: right kidney transplant 2010 - Anesthesia Hx Anesthesia: Yes Hx Anesthesia Reactions: No Hx Malignant Hyperthermia: No - Suicidal Assessment Feels Threatened In Home Enviroment: No Family/Social History - Physician Review Nursing Documentation Reviewed: Yes Family/Social History: No Known Family HX Smoking Status: Never Smoked Hx Alcohol Use: No Hx Substance Use: No Hx Substance Use Treatment: No Allergies/Home Meds Allergies/Adverse Reactions: Allergies ketamine Adverse Reaction (Severe, Verified 01/24/17 20:06) DIZZINESS patient states that after ketamine had bizzare behavior (no dizziness) Home Medications: Home Meds Medication Instructions Recorded Confirmed HYDROmorphone [Dilaudid] 4 mg PO Q6H PRN 02/28/13 01/24/17 Insulin Glulisine [Apidra] 0 unit SQ TID 12/27/16 01/24/17 Lisinopril [Zestril] 5 mg PO DAILY 12/27/16 01/24/17 Metoclopramide [Reglan] 10 mg PO TID 12/27/16 01/24/17 Ondansetron [Zofran Odt] 4 mg PO PRN PRN 12/27/16 01/24/17 Pantoprazole Sodium [Protonix] 40 mg PO DAILY 12/27/16 01/24/17 amLODIPine [Norvasc] 10 mg PO DAILY 12/27/16 01/24/17 cloNIDine [clonidine HCl] 0.2 mg PO TID 12/27/16 01/24/17 Review of Systems - Review of Systems Constitutional: absent: Fevers, Night Sweats Eyes: absent: Vision Changes ENT: absent: Hearing Changes, Rhinorrhea Respiratory: SOB Cardiovascular: Chest Pain Gastrointestinal: Abdominal Pain Genitourinary Male: absent: Dysuria, Frequency Musculoskeletal: absent: Arthralgias Skin: absent: Rash, Pruritis Neurological: absent: Headache, Dizziness Physical Exam Vital Signs Reviewed: Yes Vital Signs Temp Pulse Resp BP Pulse Ox 01/24/17 07:29 88 18 174/105 H 99 01/24/17 06:32 101 H 180/97 H 01/24/17 05:42 97.8 F 105 H 17 174/120 H 96 Temperature: Afebrile Blood Pressure: Hypertensive Pulse: Tachycardic Respiratory Rate: Normal Appearance: Positive for: Well-Appearing, Non-Toxic, Comfortable Pain Distress: None Mental Status: Positive for: Alert and Oriented X 3 - Systems Exam Head: Present: Atraumatic, Normocephalic Pupils: Present: PERRL Extroacular Muscles: Present: EOMI Conjunctiva: Present: Normal Mouth: Present: Moist Mucous Membranes Neck: Present: Normal Range of Motion Respiratory/Chest: Present: Rales (at the bases) Cardiovascular: Present: Regular Rate and Rhythm, Normal S1, S2. No: Murmurs Abdomen: Present: Tenderness (at all quadrants) Back: Present: Normal Inspection Upper Extremity: Present: Normal Inspection. No: Cyanosis, Edema Lower Extremity: Present: Normal Inspection. No: Edema Neurological: Present: GCS=15, CN II-XII Intact, Speech Normal Skin: Present: Warm, Dry, Normal Color. No: Rashes Psychiatric: Present: Alert, Oriented x 3, Normal Insight, Normal Concentration Medical Decision Making ED Course and Treatment: 01/24/17 06:00 Impression: 46 year old male complaining of shortness of breath, abdominal pain, and Chest pain tonight. Differential Diagnosis included but are not limited to: Plan: -- EKG -- Chest X-ray -- Blood Culture -- Urine Culture -- Benadryl, Dilaudid, and Zofran -- Labs -- Reassess and disposition Prior Visits: Notes and results from previous visits were reviewed. Patient last seen in the ED on 01/23/17 for abdominal pain. Patient was discharged home. Progress Notes: case d/w dr elli lind obs for intractable abd pain 01/27/17 08:09 - Lab Interpretations Microbiology Results: Microbiology Results 01/24/17 06:59 Blood-Venous Blood Culture - Preliminary NO GROWTH AFTER 3 DAYS 01/24/17 06:35 Blood-Venous Blood Culture - Preliminary NO GROWTH AFTER 3 DAYS Lab Results: 01/24/17 06:21 01/24/17 06:21 Lab Results 01/24/17 06:21: Sodium 141, Potassium 5.2 H, Chloride 103, Carbon Dioxide 23, Anion Gap 20, BUN 52 H, Creatinine 11.2 H*, Est GFR ( Amer) 6, Est GFR ( Non-Af Amer) 5, Random Glucose 130 H, Calcium 9.1, Total Bilirubin 0.5, AST 31, ALT 32, Alkaline Phosphatase 98, Lactate Dehydrogenase 531, Total Creatine Kinase 357 H, CK-MB (CK-2) 4.4 H, CK-MB (CK-2) % Cancelled, Troponin I 0.03 D, Total Protein 7.1, Albumin 3.5, Globulin 3.6, Albumin/Globulin Ratio 1.0 L, Amylase 68, Lipase 24 01/24/17 06:21: PT 12.0 H, INR 1.11 H, APTT 31.8 H 01/24/17 06:21: WBC 5.5, RBC 3.12 L, Hgb 8.4 L, Hct 26.0 L, MCV 83.3, MCH 26.9, MCHC 32.3, RDW 17.7 H, Plt Count 339, MPV 9.4, Gran % 65.3, Lymph % (Auto) 19.6 L, Geary % (Auto) 7.7 H, Eos % (Auto) 6.9 H, Baso % (Auto) 0.5, Gran # 3.57, Lymph # 1.1 L, Geary # 0.4, Eos # 0.4, Baso # 0.03 I have reviewed the lab results: Yes - RAD Interpretation Radiology Orders: 01/24/17 05:58 CHEST PORTABLE [RAD] Stat - Medication Orders Current Medication Orders: Discontinued Medications Amlodipine Besylate (Norvasc) 10 mg PO DAILY [facility] Last Admin: 01/24/17 11:36 Dose: Not Given Non-Admin Reason: Patient Refused Clonidine HCl (Catapres) 0.2 mg PO TID [facility] Diphenhydramine HCl (Benadryl) 25 mg IVP ONCE ONE Stop: 01/24/17 06:00 Last Admin: 01/24/17 06:20 Dose: 25 mg IVP Administration Document 01/24/17 06:20 (Rec: 01/24/17 06:20 [id number] Charges for Administration # of IVP Administrations 1 Diphenhydramine HCl (Benadryl) 25 mg IVP ONCE ONE Stop: 01/24/17 07:21 Last Admin: 01/24/17 07:30 Dose: 25 mg IVP Administration Document 01/24/17 07:30 SD (Rec: 01/24/17 07:30 [id number] Charges for Administration # of IVP Administrations 1 Hydromorphone HCl (Dilaudid) 2 mg IVP STAT STA Stop: 01/24/17 06:00 Last Admin: 01/24/17 06:20 Dose: 2 mg MAR Pain Assessment Document 01/24/17 06:20 YP (Rec: 01/24/17 06:20 [id number] Pain Reassessment Is this a pain reassessment? No Sleep Is patient sleeping during reassessment? No Presence of Pain Presence of Pain Yes IVP Administration Document 01/24/17 06:20 YP (Rec: 01/24/17 06:20 YP [id number]) Charges for Administration # of IVP Administrations 1 Hydromorphone HCl (Dilaudid) 2 mg IVP STAT STA Stop: 01/24/17 07:21 Last Admin: 01/24/17 07:31 Dose: 2 mg MAR Pain Assessment Document 01/24/17 07:31 SD (Rec: 01/24/17 07:31 [id number] Pain Reassessment Is this a pain reassessment? Yes Sleep Is patient sleeping during reassessment? No Presence of Pain Presence of Pain Yes Pain Scale Used Pain Scale Used Numeric Location Pain Location Body Site Abdomen Description Description Constant Intensity of Pain at present 9 Acceptable Level of Pain 2 Pain Behavior Irritability IVP Administration Document 01/24/17 07:31 NH (Rec: 01/24/17 07:31 [id number] Charges for Administration # of IVP Administrations 1 Hydromorphone HCl (Dilaudid) 1 mg PO BID PRN PRN Reason: Pain, moderate (4-7) Metoclopramide HCl (Reglan) 5 mg PO TID [facility]O Ondansetron HCl (Zofran Inj) 4 mg IVP STAT STA Stop: 01/24/17 05:59 Last Admin: 01/24/17 06:20 Dose: 4 mg IVP Administration Document 01/24/17 06:20 (Rec: 01/24/17 06:20 YP [id number]) Charges for Administration # of IVP Administrations 1 - Scribe Statement The provider has reviewed the documentation as recorded by the Sunday Reynolds Provider Scribe Attestation: All medical record entries made by the Scribronak were at my direction and personally dictated by me. I have reviewed the chart and agree that the record accurately reflects my personal performance of the history, physical exam, medical decision making, and the department course for this patient. I have also personally directed, reviewed, and agree with the discharge instructions and disposition. Disposition/Present on Arrival - Present on Arrival Any Indicators Present on Arrival: No History of DVT/PE: No History of Uncontrolled Diabetes: No Urinary Catheter: No History of Decub. Ulcer: No History Surgical Site Infection Following: None - Disposition Have Diagnosis and Disposition been Completed?: Yes Diagnosis: Gastroparesis Disposition: HOSPITALIZED Disposition Time: 07:15 Condition: UNKNOWN
[2017-01-24] MEDS ORDERED: DiphenhydrAMINE 50 mg/ml Inj IVP ONE ×2 (05:59→07:20)
[2017-01-24] MEDS ORDERED: HYDROmorphone 2 mg/ml ISec IVP STA ×2 (05:59→07:20)
[2017-01-24 06:29] LABS: BASO # 0.03 K/mm3 (0.0-2.0); BASO % 0.5 % (0.0-3.0); EOS # 0.4 (0.0-0.7); EOS % 6.9 % (1.5-5.0); GRAN # 3.57 (1.4-6.5); GRAN % 65.3 % (50.0-68.0); LYMPH # 1.1 (1.2-3.4); LYMPH % 19.6 % (22.0-35.0); MEAN CELL VOLUME 83.3 fl (80.0-105.0); MEAN CORPUSCULAR HEMOGLOBIN 26.9 pg (25.0-35.0); MEAN CORPUSCULAR HGB CONC 32.3 g/dl (31.0-37.0); MEAN PLATELET VOLUME 9.4 fl (7.0-11.0); MONO # 0.4 (0.1-0.6); MONO % 7.7 % (1.0-6.0); RED CELL DISTRIBUTION WIDTH 17.7 % (11.5-14.5); WHITE BLOOD COUNT 5.5 10^3/ul (4.5-11.0)
[2017-01-24 06:37] LABS: INR 1.11 (0.93-1.08); PARTIAL THROMBOPLASTIN TIME 31.8 Seconds (23.7-30.8)
[2017-01-24 06:39] LABS: BILIRUBIN,TOTAL 0.5 mg/dL (0.2-1.3); CALCIUM 9.1 mg/dL (8.4-10.5); POTASSIUM 5.2 mmol/L (3.6-5.0); TOTAL PROTEIN 7.1 g/dL (5.8-8.3)
[2017-01-24 06:48] LABS: TROPONIN I 0.03 ng/mL
[2017-01-24 07:41] VITALS: RESP 18; O2SAT 99
[2017-01-24 08:47] VITALS: BP 170/100; PULSE 94
--- NOTE | 2017-01-24 08:59 | RAD ---
HISTORY: Shortness of breath COMPARISON: 01/22/2017 FINDINGS: The right PICC line terminates in the SVC. LUNGS: There is severe pulmonary venous congestion. There is confluent airspace disease in the right lower lobe. PLEURA: No significant pleural effusion identified, no pneumothorax apparent. CARDIOVASCULAR: There is persistent mild cardiomegaly and prominent central vasculature. OSSEOUS STRUCTURES: No significant abnormalities. VISUALIZED UPPER ABDOMEN: Normal. OTHER FINDINGS: None. IMPRESSION: 1. Findings are most compatible with mild congestive heart failure. 2. Confluent airspace disease in the right lower lobe is concerning for pneumonia. Follow-up is advised.
[2017-01-24 12:06] LABS: RETIC% 1.39 % (0.5-1.5)
--- NOTE | 2017-01-24 20:57 | CARD ---
APPROVED REPORT EKG Measurement Heart [id number] <Conclusion> Sinus tachycardia Nonspecific T wave abnormality Abnormal ECG
--- NOTE | 2017-01-25 18:38 | CP.PCM.HP ---
Addendum entered and electronically signed by Randy Chapa DO 01/25/17 19: 01: Patient after being admitted decided to leave AMA after we advised him he needed to get the PICC removed and that he wouldn't be getting IV Dilaudid. Original Note: <Randy Chapa - Last Filed: 01/25/17 18:57> History of Present Illness - History of Present Illness History of Present Illness: Patient is a 46 yo M with significant PMH for DM, HTN, ESRD on HD M/W/F, failed renal transplant in May 2016/ [place], gastroparesis, PE, who complains of abdominal pain that woke him up from sleep this morning at 4:30AM. Patient describes the pain as sharp, constant, and to the mid abdomen, which radiates to the left side of the abdomen and then up to the middle of the chest. He reports nausea and 4 episodes of vomiting since the onset of these symptoms. Pt additionally reports dyspnea with mild exertion that has been worsening over the past month. Pt is on hemodialysis, and was last dialyzed 3 days ago; he is due for dialysis today. Denies headache, lightheadedness, visual or hearing changes, recent cough or congestion, palpitations, changes in bowel movements, changes in appetite, or focal weakness. Pt was seen in the ED yesterday, where he had labs drawn, and was given Zofran, and Dilaudid 4 mg with Benadryl for pain. Pt states that he sees a pain management physician who prescribes him Dilaudid 4 mg PO for abdominal and back pain. Pt [place] [facility] where he had a CT of the abdomen showing pleural effusions, pericardial effusion, mild interlobular septal thickening at the bases, but no acute findings, and was discharged home after he was treated for pain. PMH: HTN, DM, ESRD on HD (M/W/F), kidney transplant in 2009, failed in May 2016 s/p [place], gastritis, gastroparesis, gastric ulcers, pulmonary embolism, occasional pancreatitis, anemia PSH: cholecystitis, gastric pacemaker (pt states it does not work) Prior hospitalizations: Last seen in the ED yesterday Meds: Clonidine, Norvasc, Lisinopril, Hydralazine, PTX, Zofran, Reglan, Insulin sliding scale with 45 units Levemir, Eliquis 5 mg Allergies: Ketamine Family hx: DM Social hx: - denies tobacco, EtOH, or recreational drugs - pt is retired - lives at home with daughters Present on Admission - Present on Admission Any Indicators Present on Admission: Yes History of DVT/PE: Yes Review of Systems - Constitutional Constitutional: As Per HPI - EENT Eyes: As Per HPI Ears: As Per HPI Nose/Mouth/Throat: As Per HPI - Cardiovascular Cardiovascular: As Per HPI - Respiratory Respiratory: As Per HPI - Gastrointestinal Gastrointestinal: As Per HPI - Genitourinary Genitourinary: As Per HPI - Musculoskeletal Musculoskeletal: As Per HPI - Integumentary Integumentary: As Per HPI - Neurological Neurological: As Per HPI - Psychiatric Psychiatric: As Per HPI - Endocrine Endocrine: As Per HPI - Hematologic/Lymphatic Hematologic: As Per HPI Past Patient History - Infectious Disease Hx of Infectious Diseases: None - Tetanus Immunizations Tetanus Immunization: Unknown - Past Social History Smoking Status: Never Smoked - CARDIAC Hx Hypertension: Yes - PULMONARY Hx Respiratory Disorders: No - NEUROLOGICAL Hx Neurological Disorder: No - HEENT Hx HEENT Problems: No - RENAL Hx Chronic Kidney Disease: Yes Hx Dialysis: Yes Hx Renal Failure: Yes - ENDOCRINE/METABOLIC Hx Diabetes Mellitus Type 2: Yes - HEMATOLOGICAL/ONCOLOGICAL Hx Blood Transfusions: (NA) Hx Blood Transfusion Reaction: (NA) Other/Comment: "blood infection" being tx by infectious disease. PICC line - INTEGUMENTARY Hx Dermatological Problems: No - MUSCULOSKELETAL/RHEUMATOLOGICAL Hx Falls: No - GASTROINTESTINAL Other/Comment: gastrophoresis, pt has gastric pacemaker inplanted 2010 - GENITOURINARY/GYNECOLOGICAL Other/Comment: HD MWF - PSYCHIATRIC Hx Depression: No Hx Substance Use: No - SURGICAL HISTORY Hx Kidney Transplant: Yes (right 2010) Other/Comment: right kidney transplant 2010 - ANESTHESIA Hx Anesthesia: Yes Hx Anesthesia Reactions: No Hx Malignant Hyperthermia: No Meds Allergies/Adverse Reactions: Allergies Allergy/AdvReac Type Severity Reaction Status Date / Time ketamine AdvReac Severe DIZZINESS Verified 01/24/17 20:06 Physical Exam - Head Exam Head Exam: ATRAUMATIC, NORMAL INSPECTION, NORMOCEPHALIC - Eye Exam Eye Exam: EOMI, Normal appearance, PERRL Pupil Exam: NORMAL ACCOMODATION, PERRL. absent: Irregular - ENT Exam ENT Exam: Mucous Membranes Moist - Neck Exam Neck exam: Positive for: Normal Inspection - Respiratory Exam Respiratory Exam: Clear to Auscultation Bilateral, NORMAL BREATHING PATTERN. absent: Accessory Muscle Use, Chest Wall Tenderness, Respiratory Distress - Cardiovascular Exam Cardiovascular Exam: REGULAR RHYTHM, +S1, +S2 - GI/Abdominal Exam GI & Abdominal Exam: Normal Bowel Sounds - Neurological Exam Neurological exam: Alert, CN II-XII Intact, Oriented x3 - Psychiatric Exam Psychiatric exam: Normal Affect, Normal Mood - Skin Skin Exam: Dry, Intact Results - Vital Signs Recent Vital Signs: Last Vital Signs Temp 97.8 F 01/24/17 05:42 Pulse 94 H 01/24/17 08:30 Resp 18 01/24/17 11:47 BP 170/100 H 01/24/17 08:30 Pulse Ox 99 01/24/17 08:30 - Labs Result Diagrams: 01/24/17 06:21 01/24/17 06:21 Assessment & Plan - Assessment and Plan (Free Text) Assessment: 46 year old M with PMH significant for DM, HTN, ESRD, [place], gastroparesis, admitted for evaluation of abdominal pain, chest pain, and acute on chronic renal failure. Plan: 1. Abdominal pain, nausea - Pain control - Zofran - GI consult - CT abdomen & X-rays done and reviewed - Monitor labs 2. Chest pain - Troponin = 0.3, CKMB = 4.4, Total CK = 357, trending down from labs yesterday - Trend Troponins (-)x3. Continue to monitor closely. - EKG showed sinus tachycardia, but no peaked T waves, and no acute ST elevations - Echocardiogram 3. End stage renal disease on hemodialysis - BUN = 52, Creatinine = 11.2 - Placed on renal diet - Schedule HD for today. 4. Hyperkalemia - EKG does not show peaked T waves at this time - Monitor K+ with serial CMP's. Will replete as needed. 5. Uncontrolled hypertension - BP = 190/123 - Continue home meds 6. PICC Line - Pt has PICC line placed months ago at another hospital - Discussed with pts risks for infection a/w PICC line, he refuses to have the line removed, pt signed form for AMA 7. Anemia - Hgb = 8.4, stable compared to yesterday - No indication to transfuse at present. -Continue to monitor closely and if patient drops before 7 then transfuse. 8. History of diabetes - Monitor blood sugar - Continue ISS in hospital. <Diane Bravo MD - Last Filed: 01/26/17 14:25> Results - Vital Signs Recent Vital Signs: Last Vital Signs Temp 97.8 F 01/24/17 05:42 Pulse 94 H 01/24/17 08:30 Resp 18 01/24/17 11:47 BP 170/100 H 01/24/17 08:30 Pulse Ox 99 01/24/17 08:30 - Labs Result Diagrams: 01/24/17 06:21 01/24/17 06:21 Attending/Attestation - Attestation I have personally seen and examined this patient.: Yes I have fully participated in the care of the patient.: Yes I have reviewed all pertinent clinical information: Yes Notes (Text): 01/26/17 14:20 Patient was seen and examined with certified medical coder. Agreed with resident assessment and plan. 46 yrs old male with significant PMH for DM, HTN, ESRD on HD M/W/F, failed renal transplant in May 2016 2/2 [place], gastroparesis?, Pulmonary embolism was admitted with abdominal pain, abdominal examination was benign, CT abdomen and Pelvis .Patient was ambulatory, not inpain, was demanding IV Narcotics which was not given as he was not in pain and was also giving history of gastropresis.Patient was recently diagnosed with bactremia and was treated with 4 weeks of antibiotics, he refused removal of PICC line.The issue was discussed in detail with him. He was alert ,awake and oriented and sign out against medical advice. Prognosis is guarded. Management plan was discussed in detail with patient Education was provided. 01/26/17 14:23
== END 2017-01-24 12:44 | disposition left against medical advice (07) ==
LOC: ED 05:33 → ERH 07:19 → 3RNO 08:39
PROVIDERS: ADMIT Hospitalist; ATTEND Internal Medicine
DX: R07.9 Chest pain, unspecified (principal); E11.22 Type 2 diabetes mellitus with diabetic chronic kidney disease; I12.0 Hypertensive chronic kidney disease with stage 5 chronic kidney disease or end stage renal disease; N18.6 End stage renal disease; Z79.899 Other long term (current) drug therapy; K29.70 Gastritis, unspecified, without bleeding
CPT/HCPCS: 71010; 80053; 82150; 82550; 82553; 82728; 83615; 83690; 84484; 85025; 85044; 85610; 85730; 87040; 93005; 96374; 96375; 96376; 99283; G0378; J1170; J1200; J2405

== ENCOUNTER 2017-01-26 19:32 | Emergency (ER) | payer MEDICARE, BC ==
--- NOTE | 2017-01-26 19:51 | ED PDOC ---
Arrival/HPI - General Historian: Patient - History of Present Illness Time/Duration: < week Symptom Onset: Gradual Symptom Course: Unchanged Quality: Aching Severity Level: Moderate Activities at Onset: Rest Context: Home <Jackie Chow - Last Filed: 01/26/17 21:11> <JagBrigido - Last Filed: 01/26/17 21:20> - General Chief Complaint: Shortness Of Breath Time Seen by Provider: 01/26/17 19:34 - History of Present Illness Narrative History of Present Illness (Text): 01/26/17 19:56 This is a 46Y M with PMH [place], renal transplant on hemodialysis and chronic pain came to ED nausea and vomiting x 5 days. As per prior records, he was admitted to [facility] on 01/23/2017 and was d/c the next day. He was noted to go to [facility] [place] Emergency department the same day asking for pain medications. Patient reports he ran out of his PO Dilaudid and cannot get it until tomorrow. He reports his nausea is relieved by Zofran, Dilaudid and Benadryl. He denies having any diarrhea, chest pain, shortness of breath, numbness/tingling, fever or chills. Patient said "my pain management doctor said that he could come to the Emergency department for breakthrough pain." (Jackie Chow) Past Medical History - Provider Review Nursing Documentation Reviewed: Yes - Travel History Have you recently traveled outside [place] w/in the past 3 mons?: No - Infectious Disease Hx of Infectious Diseases: None - Tetanus Immunization Tetanus Immunization: Unknown - Cardiac Hx Hypertension: Yes - Pulmonary Hx Respiratory Disorders: No - Neurological Hx Neurological Disorder: No - HEENT Hx HEENT Disorder: No - Renal Hx Renal Disorder: Yes Hx Dialysis: Yes Hx Renal Failure: Yes - Endocrine/Metabolic Hx Diabetes Mellitus Type 2: Yes - Hematological/Oncological Hx Blood Transfusions: (NA) Hx Blood Transfusion Reaction: (NA) Other/Comment: "blood infection" being tx by infectious disease. PICC line - Integumentary Hx Dermatological Disorder: No - Musculoskeletal/Rheumatological Hx Falls: No - Gastrointestinal Other/Comment: gastrophoresis, pt has gastric pacemaker inplanted 2010 - Genitourinary/Gynecological Other/Comment: HD MWF - Psychiatric Hx Depression: No Hx Substance Use: No - Surgical History Hx Kidney Transplant: Yes (right 2010) Other/Comment: right kidney transplant 2009 - Anesthesia Hx Anesthesia: Yes Hx Anesthesia Reactions: No Hx Malignant Hyperthermia: No - Suicidal Assessment Feels Threatened In Home Enviroment: No <Jackie Chow - Last Filed: 01/26/17 21:11> Family/Social History - Physician Review Nursing Documentation Reviewed: Yes Family/Social History: CAD/[place] Smoking Status: Never Smoked Hx Alcohol Use: No Hx Substance Use: No Hx Substance Use Treatment: No <Jackie Chow - Last Filed: 01/26/17 21:11> Allergies/Home Meds <Jackie Chow - Last Filed: 01/26/17 21:11> <Brigido Rm - Last Filed: 01/26/17 21:20> Allergies/Adverse Reactions: Allergies ketamine Adverse Reaction (Severe, Verified 01/24/17 20:06) DIZZINESS patient states that after ketamine had bizzare behavior (no dizziness) Home Medications: Home Meds Medication Instructions Recorded Confirmed HYDROmorphone [Dilaudid] 4 mg PO Q6H PRN 02/28/13 01/24/17 Insulin Glulisine [Apidra] 0 unit SQ TID 12/27/16 01/24/17 Lisinopril [Zestril] 5 mg PO DAILY 12/27/16 01/24/17 Metoclopramide [Reglan] 10 mg PO TID 12/27/16 01/24/17 Ondansetron [Zofran Odt] 4 mg PO PRN PRN 12/27/16 01/24/17 Pantoprazole Sodium [Protonix] 40 mg PO DAILY 12/27/16 01/24/17 amLODIPine [Norvasc] 10 mg PO DAILY 12/27/16 01/24/17 cloNIDine [clonidine HCl] 0.2 mg PO TID 12/27/16 01/24/17 Review of Systems - Physician Review All systems were reviewed & negative as marked: Yes - Review of Systems Constitutional: Normal. absent: Fevers Respiratory: Normal. absent: SOB, Cough Cardiovascular: Normal. absent: Chest Pain, Palpitations Gastrointestinal: Nausea, Vomiting. absent: Abdominal Pain Genitourinary Male: Normal. absent: Dysuria, Frequency Musculoskeletal: Back Pain. absent: Arthralgias, Myalgias Skin: Normal. absent: Rash, Pruritis Neurological: Normal. absent: Headache, Dizziness <Jackie Chow - Last Filed: 01/26/17 21:11> Physical Exam Vital Signs Reviewed: Yes Temperature: Afebrile Blood Pressure: Normal Pulse: Regular Respiratory Rate: Normal Appearance: Positive for: Well-Appearing, Non-Toxic, Comfortable Pain Distress: None Mental Status: Positive for: Alert and Oriented X 3 - Systems Exam Head: Present: Atraumatic, Normocephalic Pupils: Present: PERRL Extroacular Muscles: Present: EOMI Conjunctiva: Present: Normal Mouth: Present: Moist Mucous Membranes Neck: Present: Normal Range of Motion Respiratory/Chest: Present: Clear to Auscultation, Good Air Exchange. No: Respiratory Distress, Accessory Muscle Use Cardiovascular: Present: Regular Rate and Rhythm, Normal S1, S2. No: Murmurs Abdomen: Present: Tenderness, Normal Bowel Sounds. No: Distention, Peritoneal Signs, Rebound, Guarding, McBurney's Point Tender Back: Present: Normal Inspection Upper Extremity: Present: Normal Inspection. No: Cyanosis, Edema Lower Extremity: Present: Normal Inspection. No: Edema Neurological: Present: GCS=15, CN II-XII Intact, Speech Normal Skin: Present: Warm, Dry, Normal Color. No: Rashes Psychiatric: Present: Alert, Oriented x 3, Normal Insight, Normal Concentration <Jackie Chow - Last Filed: 01/26/17 21:11> Vital Signs Temp Pulse Resp BP Pulse Ox 01/26/17 19:42 97.7 F 102 H 18 154/98 H 97 Medical Decision Making <Jackie Chow - Last Filed: 01/26/17 21:11> <Brigido Rm - Last Filed: 01/26/17 21:20> ED Course and Treatment: 01/26/17 20:07 Impression: This is a 46Y M with PMH CAD, Renal transplant and chronic pain who came to Emergency department for nausea and vomiting x 5 days. Differential Diagnosis included but are not limited to: withdrawal v. GERD Plan: -- Maalox -- Benadryl PO -- Reassess and disposition Prior Visits: Notes and results from previous visits were reviewed. Progress Notes: Patient refusing treatment. Patient is requesting 1mg Dilauldid IVP with Benadryl IVP until he can see his pain management doctor tomorrow. Leaving Against Medical Advice (AMA): The patient is choosing to leave against medical advice. I have personally explained to the patient that choosing to do so may result in permanent bodily harm or . I have discussed at great length that without further evaluation and monitoring there may be unforeseen circumstances and/or deterioration causing permanent bodily harm or as a result of their choice. The patient is alert, oriented, and shows the mental capacity to make clear decisions regarding the patients health care at this time. The patient continues to wish to leave against medical advice. In light of the patients decision to leave against medical advice, follow-up has been arranged and the patient is aware of the importance to following up as instructed. The patient has been advised that they should return to the emergency room immediately if they change their mind at any time, or if their condition begins to change or worsen in any way. (Jackie Chow) Impression: Pt seen and evaluated with medical insurance claims specialist. Pt, whose past medical history includes [place],ESRD on hemodialysis s/p renal transplant, and chronic pain, presented for nausea and vomiting. Pt requesting pain medication. Aware and agree with HPI, clinical findings, plan, and management. Plan: -- Benadryl -- Maalox -- Reassess and disposition (Brigido Rm) - Medication Orders Current Medication Orders: Discontinued Medications Al Hydrox/Mg Hydrox/Simethicone (Maalox Plus 30 Ml) 30 ml PO STAT STA Stop: 01/26/17 20:09 Last Admin: 01/26/17 20:27 Dose: Not Given Non-Admin Reason: Patient Refused Diphenhydramine HCl (Benadryl) 50 mg PO STAT STA Stop: 01/26/17 20:09 Last Admin: 01/26/17 20:27 Dose: Not Given Non-Admin Reason: Patient Refused - PA / TUFTING CREELER / Resident Statement / has reviewed & agrees with the documentation as recorded. MELVA has examined the patient and agrees with the treatment plan. <Brigido Rm - Last Filed: 01/26/17 21:20> Disposition/Present on Arrival - Present on Arrival Any Indicators Present on Arrival: No History of DVT/PE: No History of Uncontrolled Diabetes: No Urinary Catheter: No History Surgical Site Infection Following: None - Disposition Have Diagnosis and Disposition been Completed?: Yes Disposition Time: 20:50 Patient Plan: Discharge <Jackie Chow - Last Filed: 01/26/17 21:11> <Brigido Rm - Last Filed: 01/26/17 21:20> - Disposition Diagnosis: Narcotic drug user Disposition: LEFT W/O TREATMENT - ER ONLY Patient Problems: Current Active Problems Problem Status Onset Narcotic drug user Acute Forms: [employer] (Jordanian)
[2017-01-26 20:06] VITALS: BMI 25.1
[2017-01-26] MEDS ORDERED: Alum-Mag Hydrox-Simethicone Susp (30 mL) PO STA (20:08)
[2017-01-26 20:16] VITALS: BP 154/98; PULSE 102; RESP 18; TEMP 97.7; O2SAT 97
--- NOTE | 2017-01-27 19:07 | CARD ---
APPROVED REPORT EKG Measurement Heart [id number] <Conclusion> Sinus tachycardia Otherwise normal ECG
== END 2017-01-26 20:40 | disposition left against medical advice (07) ==
LOC: ED 19:32
DX: F11.90 Opioid use, unspecified, uncomplicated (principal); I12.0 Hypertensive chronic kidney disease with stage 5 chronic kidney disease or end stage renal disease; N18.6 End stage renal disease; Z99.2 Dependence on renal dialysis; Z94.0 Kidney transplant status; E11.9 Type 2 diabetes mellitus without complications

== ENCOUNTER 2017-02-21 21:37 | Emergency (ER) | payer MEDICARE, BC ==
[2017-02-21 21:46] VITALS: BMI 34.5
[2017-02-21 21:52] VITALS: BP 190/105; PULSE 98; RESP 18; TEMP 98.9
[2017-02-21 21:59] VITALS: O2SAT 95
--- NOTE | 2017-02-21 22:32 | ED PDOC ---
Arrival/HPI - General Historian: Patient - History of Present Illness Time/Duration: 4-6 hours Symptom Onset: Sudden Symptom Course: Unchanged Quality: Aching Severity Level: 10 Activities at Onset: Rest, Light Context: Home - General Chief Complaint: Shortness Of Breath - History of Present Illness Narrative History of Present Illness (Text): 02/21/17 22:23 Mr. Contreras is a 46 year old male with a past medical history significant for hypertension, DM2, CKD on HD 3 days/week, kidney transplant and chronic back pain presents to the [facility] emergency department with a chief complaint of shortness of breath, LBP and abdominal pain that he states all started after HD earlier today. Patient reports that he went for HD at 0700 today and since that time he has had a hard time catching his breath. He also reports that he has had one episode of NBNB vomiting at approximately 1900 with associated aching abdominal pain. He also reports that he has aching low back pain since this morning as well. He denies any fever, chills, headache, changes in his vision, chest pain, palpitations, cough, wheezing, nausea, diarrhea, constipation, changes in defecation or urination, rashes or any numbness/tingling/weakness of any extremity. (ROWANCHARISSE) Past Medical History - Provider Review Nursing Documentation Reviewed: Yes - Travel History Have you recently traveled outside [place] w/in the past 3 mons?: No - Past History Past History: Non-Contributing - Infectious Disease Hx of Infectious Diseases: None - Tetanus Immunization Tetanus Immunization: Unknown - Cardiac Hx Cardiac Disorders: Yes Hx MO: Yes (May 2016) Hx Hypertension: Yes - Pulmonary Hx Respiratory Disorders: No - Neurological Hx Neurological Disorder: No - HEENT Hx HEENT Disorder: No - Renal Hx Renal Disorder: Yes Hx Dialysis: Yes (Dialysis M/W/F) - Endocrine/Metabolic Hx Endocrine Disorders: Yes Hx Diabetes Mellitus Type 1: Yes - Hematological/Oncological Hx Blood Transfusions: (NA) Hx Blood Transfusion Reaction: (NA) Other/Comment: "blood infection" being tx by infectious disease. PICC line - Integumentary Hx Dermatological Disorder: No - Musculoskeletal/Rheumatological Hx Musculoskeletal Disorders: No Hx Falls: No - Gastrointestinal Other/Comment: gastrophoresis, pt has gastric pacemaker inplanted 2010 - Genitourinary/Gynecological Other/Comment: HD MWF - Psychiatric Hx Psychophysiologic Disorder: No Hx Substance Use: No - Surgical History Hx Kidney Transplant: Yes (right 2010) Other/Comment: right kidney transplant 2010 - Anesthesia Hx Anesthesia: Yes Hx Anesthesia Reactions: No Hx Malignant Hyperthermia: No - Suicidal Assessment Feels Threatened In Home Enviroment: No Family/Social History - Physician Review Nursing Documentation Reviewed: Yes Family/Social History: Unknown Family HX Smoking Status: Never Smoked Hx Alcohol Use: No Hx Substance Use: No Hx Substance Use Treatment: No Allergies/Home Meds Allergies/Adverse Reactions: Allergies ketamine Adverse Reaction (Severe, Verified 02/21/17 21:59) DIZZINESS patient states that after ketamine had bizzare behavior (no dizziness) Home Medications: Home Meds Medication Instructions Recorded Confirmed HYDROmorphone [Dilaudid] 4 mg PO Q6H PRN 02/28/13 02/21/17 Insulin Glulisine [Apidra] 0 unit SQ TID 12/27/16 02/21/17 Lisinopril [Zestril] 5 mg PO DAILY 12/27/16 02/21/17 Metoclopramide [Reglan] 10 mg PO TID 12/27/16 02/21/17 Ondansetron [Zofran Odt] 4 mg PO PRN PRN 12/27/16 02/21/17 Pantoprazole Sodium [Protonix] 40 mg PO DAILY 12/27/16 02/21/17 amLODIPine [Norvasc] 10 mg PO DAILY 12/27/16 02/21/17 cloNIDine [clonidine HCl] 0.2 mg PO TID 12/27/16 02/21/17 Review of Systems - Physician Review All systems were reviewed & negative as marked: Yes - Review of Systems Constitutional: Normal. absent: Fevers, Night Sweats Eyes: Normal. absent: Vision Changes ENT: Normal Respiratory: SOB. absent: Normal, Cough, Wheezing Cardiovascular: Normal. absent: Chest Pain, Palpitations Gastrointestinal: Abdominal Pain, Vomiting (one episode of NBNB at 1900). absent: Normal, Stool Changes, Constipation, Diarrhea, Nausea Genitourinary Male: Normal. absent: Urinary Output Changes Musculoskeletal: Back Pain (midline low back pain). absent: Normal, Arthralgias , Neck Pain, Joint Swelling, Myalgias Skin: Normal. absent: Rash Neurological: Normal, Other (Denies numbness/tingling/weakness of any extremity) . absent: Headache Endocrine: Normal Hemo/Lymphatic: Normal Psychiatric: Normal Physical Exam Vital Signs Reviewed: Yes Temperature: Afebrile Blood Pressure: Hypertensive Pulse: Regular Respiratory Rate: Normal Appearance: Positive for: Well-Appearing, Non-Toxic, Uncomfortable Pain Distress: Mild Mental Status: Positive for: Alert and Oriented X 3 - Systems Exam Head: Present: Atraumatic, Normocephalic Pupils: Present: PERRL Extroacular Muscles: Present: EOMI Conjunctiva: Present: Normal Mouth: Present: Moist Mucous Membranes Neck: Present: Normal Range of Motion, Trachea Midline. No: Meningeal Signs, MIDLINE TENDERNESS, Paraspinal Tenderness, Lymphadenopathy Respiratory/Chest: Present: Clear to Auscultation, Good Air Exchange. No: Respiratory Distress, Accessory Muscle Use, Wheezes, Decreased Breath Sounds, Rales, Retracting, Rhonchi, Tachypneic, Tender to Palpation Cardiovascular: Present: Regular Rate and Rhythm, Normal S1, S2, Peripheal Pulses Present. No: Murmurs, Irregular Rhythm, Tachycardic, Bradycardic Abdomen: Present: Tenderness (epigastric and periumbilical TTP), Normal Bowel Sounds. No: Distention, Peritoneal Signs, Rebound, Guarding Back: Present: Midline Tenderness (L2-L5), Pain with Leg Raise (Bilaterally). No: Normal Inspection, CVA Tenderness, Paraspinal Tenderness Upper Extremity: Present: Normal Inspection, Normal ROM, NORMAL PULSES, Capillary Refill < 2s. No: Cyanosis, Edema Lower Extremity: Present: Normal Inspection, NORMAL PULSES, Normal ROM, Capillary Refill < 2 s. No: Edema, CALF TENDERNESS Neurological: Present: GCS=15, CN II-XII Intact, Speech Normal Skin: Present: Warm, Dry, Normal Color. No: Rashes Lymphatic: No: Cervical Adenopathy Psychiatric: Present: Alert, Oriented x 3, Normal Insight, Normal Concentration Vital Signs Temp Pulse Resp BP Pulse Ox 02/21/17 21:59 18 95 02/21/17 21:50 98.9 F 98 H 18 190/105 H Medical Decision Making - EKG Interpretation Interpreted by ED Physician: Yes Type: 12 lead EKG ED Course and Treatment: Impression: Pt seen and evaluated with director of graduate medical education. Pt, whose past medical history includes chronic pain, hypertension, Type 2 diabetes, gastritis, ESRD, status post renal transplant (failed in 05/25), and gastritis, presented for shortness of breath, lower back pain, and abdominal pain. Aware and agree with HPI, clinical findings, plan, and management. Plan: -- EKG -- Benadryl -- Tylenol -- Reassess and disposition (Jorje Mora) 02/21/17 22:38 Impression: 46 year old male with a past medical history significant for hypertension, DM2, CKD on HD 3 days/week, kidney transplant and chronic back pain presents to the [facility] emergency department with a chief complaint of shortness of breath, LBP and abdominal pain that he states all started after HD earlier today. Plan: -Tylenol 975mg PO STAT per [facility] pain management protocol -CBC, CMP, VBG -Chest X-Ray -Reassess and disposition Prior Visits: All results and reports from previous visits reviewed Patient was seen and evaluated multiple times over the course of the past 3 months for abdominal pain. (CHARISSE CONTRERAS) - EKG Interpretation EKG Interpretation (Text): 02/21/17 23:44 Sinus bradycardia at 57 bpm (CHARISSE CONTRERAS) - Medication Orders Current Medication Orders: Discontinued Medications Acetaminophen (Tylenol 325mg Tab) 975 mg PO STAT STA Stop: 02/21/17 22:18 Last Admin: 02/21/17 22:38 Dose: Not Given Non-Admin Reason: Patient Refused Diphenhydramine HCl (Benadryl) 25 mg PO STAT STA Stop: 02/21/17 22:59 Disposition/Present on Arrival - Present on Arrival Any Indicators Present on Arrival: No History of DVT/PE: No History of Uncontrolled Diabetes: No Urinary Catheter: No History of Decub. Ulcer: No History Surgical Site Infection Following: None - Disposition Have Diagnosis and Disposition been Completed?: No Disposition Time: 23:46 - Disposition Diagnosis: Shortness of breath Disposition: ELOPEMENT - ER ONLY Condition: UNKNOWN Forms: [employer] (Tajik)
--- NOTE | 2017-02-22 22:18 | CARD ---
APPROVED REPORT EKG Measurement Heart [id number] <Conclusion> Sinus tachycardia Abnormal QRS-T angle, consider primary T wave abnormality Abnormal ECG
== END 2017-02-21 23:46 | disposition left against medical advice (07) ==
LOC: ED 21:37
DX: R06.02 Shortness of breath (principal); I12.9 Hypertensive chronic kidney disease with stage 1 through stage 4 chronic kidney disease, or unspecified chronic kidney disease; N18.9 Chronic kidney disease, unspecified; Z94.0 Kidney transplant status; Z99.2 Dependence on renal dialysis; E11.9 Type 2 diabetes mellitus without complications

== ENCOUNTER 2018-06-27 21:03 | Emergency (ER) | payer MEDICARE, BC ==
[2018-06-27 21:40] VITALS: BMI 29.8
[2018-06-27 21:41] VITALS: BP 152/84; PULSE 99; RESP 18; TEMP 97.9; O2SAT 98
[2018-06-27] MEDS ORDERED: Morphine 2 mg/ml ISec IVP STA (23:39)
--- NOTE | 2018-06-28 | ED PDOC ---
Arrival/HPI - General Chief Complaint: Abdominal Pain Time Seen by Provider: 06/27/18 22:40 Historian: Patient - History of Present Illness Narrative History of Present Illness (Text): 06/27/18 23:44 48 year old male, whose past medical history includes chronic pain, hypertension, Type 2 diabetes, gastritis, ESRD, status post renal transplant, and gastritis, who presents to the Emergency department complaining of chronic abdominal and back pain. Patient states he took his Dilaudid today at home, and it did not help. Patient informs of recent back surgery, which is causing him the pain. Patient is requesting Dilaudid in the Emergency room. Patient states he takes PO Dilaudid every 4 hours at home and always gets Dilaudid in the Emergency Department. 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 Time/Duration: Prior to Arrival, Other (chronic) Symptom Onset: Gradual Symptom Course: Unchanged Quality: Aching Activities at Onset: Light Context: Home Past Medical History - Provider Review Nursing Documentation Reviewed: Yes - Past History Past History: Non-Contributing - Infectious Disease Hx of Infectious Diseases: None - Tetanus Immunization Tetanus Immunization: Unknown - Cardiac Hx Cardiac Disorders: Yes Hx IN: Yes (May 2016) Hx Hypertension: Yes - Pulmonary Hx Respiratory Disorders: No - Neurological Hx Neurological Disorder: No - HEENT Hx HEENT Disorder: No - Renal Hx Renal Disorder: Yes Hx Dialysis: Yes (Dialysis M/W/F) - Endocrine/Metabolic Hx Endocrine Disorders: Yes Hx Diabetes Mellitus Type 1: Yes - Hematological/Oncological Hx Blood Transfusions: (NA) Hx Blood Transfusion Reaction: (NA) Other/Comment: "blood infection" being tx by infectious disease. PICC line - Integumentary Hx Dermatological Disorder: No - Musculoskeletal/Rheumatological Hx Musculoskeletal Disorders: No Hx Falls: No - Gastrointestinal Hx Gastrointestinal Disorders: Yes Other/Comment: gastrophoresis, pt has gastric pacemaker inplanted 2010 - Genitourinary/Gynecological Hx Genitourinary Disorders: Yes Other/Comment: HD MWF - Psychiatric Hx Psychophysiologic Disorder: No Hx Substance Use: No - Surgical History Hx Kidney Transplant: Yes (right 2009) Other/Comment: right kidney transplant 2009 - Anesthesia Hx Anesthesia: Yes Hx Anesthesia Reactions: No Hx Malignant Hyperthermia: No - Suicidal Assessment Feels Threatened In Home Enviroment: No Family/Social History - Physician Review Nursing Documentation Reviewed: Yes Family/Social History: No Known Family HX Smoking Status: Never Smoked Hx Alcohol Use: No Hx Substance Use: No Hx Substance Use Treatment: No Allergies/Home Meds Allergies/Adverse Reactions: Allergies ketamine Adverse Reaction (Severe, Verified 06/27/18 21:40) DIZZINESS patient states that after ketamine had bizzare behavior (no dizziness) Home Medications: Home Meds Medication Instructions Recorded Confirmed HYDROmorphone [Dilaudid] 4 mg PO Q6H PRN 02/28/13 02/21/17 Insulin Glulisine [Apidra] 0 unit SQ TID 12/27/16 02/21/17 Lisinopril [Zestril] 5 mg PO DAILY 12/27/16 02/21/17 Metoclopramide [Reglan] 10 mg PO TID 12/27/16 02/21/17 Ondansetron [Zofran Odt] 4 mg PO PRN PRN 12/27/16 02/21/17 Pantoprazole Sodium [Protonix] 40 mg PO DAILY 12/27/16 02/21/17 amLODIPine [Norvasc] 10 mg PO DAILY 12/27/16 02/21/17 cloNIDine [clonidine HCl] 0.2 mg PO TID 12/27/16 02/21/17 Review of Systems - Physician Review All systems were reviewed & negative as marked: Yes - Review of Systems Constitutional: absent: Fevers, Night Sweats Respiratory: absent: SOB, Cough Cardiovascular: absent: Chest Pain Gastrointestinal: Abdominal Pain Musculoskeletal: Back Pain Neurological: absent: Headache, Dizziness Physical Exam Vital Signs Reviewed: Yes Vital Signs Temp Pulse Resp BP Pulse Ox 06/27/18 21:40 97.9 F 99 H 18 152/84 H 98 Temperature: Afebrile Blood Pressure: Normal Pulse: Tachycardic Respiratory Rate: Normal Appearance: Positive for: Well-Appearing, Non-Toxic, Comfortable Pain Distress: None Mental Status: Positive for: Alert and Oriented X 3 - Systems Exam Head: Present: Atraumatic, Normocephalic Pupils: Present: PERRL Extroacular Muscles: Present: EOMI Conjunctiva: Present: Normal Mouth: Present: Moist Mucous Membranes Neck: Present: Normal Range of Motion Respiratory/Chest: Present: Clear to Auscultation, Good Air Exchange. No: Respiratory Distress, Accessory Muscle Use Cardiovascular: Present: Regular Rate and Rhythm, Normal S1, S2. No: Murmurs Abdomen: Present: Tenderness (Epigastric tenderness on deep palpation). No: Distention, Peritoneal Signs, Rebound Back: Present: Normal Inspection Upper Extremity: Present: Normal Inspection. No: Cyanosis, Edema Lower Extremity: Present: Normal Inspection. No: Edema Neurological: Present: GCS=15, CN II-XII Intact, Speech Normal Skin: Present: Warm, Dry, Normal Color, Other (Dialysis fistula left arm, bruit and thrill positive). No: Rashes Psychiatric: Present: Alert, Oriented x 3, Normal Insight, Normal Concentration Medical Decision Making ED Course and Treatment: 06/28/18 00:06 Impression: 48 year old male presents with chronic back and abdominal pain Plan: -- EKG -- CMP, Lipase, Mg, Trop -- CBC -- Chest X-ray -- Pepcid -- Morphine -- Reassess and disposition Prior Visits: Notes and results from previous visits were reviewed. Progress Notes: 06/28/18 02:01 Patient was denied dilaudid and became belligerent. I explained to the patient that the ED does not have Dilaudid. Patient was given Morphine. Patient demanded IV benadryl. At 01:30 patient was no longer in the ER, and did not wait for his test results. Patient eloped from the ED. - RAD Interpretation Radiology Orders: 06/27/18 23:37 CHEST PORTABLE [RAD] Stat - Medication Orders Current Medication Orders: Discontinued Medications Famotidine (Pepcid) 20 mg IVP STAT STA Stop: 06/27/18 23:38 Morphine Sulfate (Morphine) 2 mg IVP STAT STA Stop: 06/27/18 23:40 - Scribe Statement The provider has reviewed the documentation as recorded by the Sunday Chanel Provider Scribe Attestation: All medical record entries made by the Scribe were at my direction and personally dictated by me. I have reviewed the chart and agree that the record accurately reflects my personal performance of the history, physical exam, medical decision making, and the department course for this patient. I have also personally directed, reviewed, and agree with the discharge instructions and disposition. Disposition/Present on Arrival - Present on Arrival Any Indicators Present on Arrival: No History of DVT/PE: No History of Uncontrolled Diabetes: No Urinary Catheter: No History of Decub. Ulcer: No History Surgical Site Infection Following: None - Disposition Have Diagnosis and Disposition been Completed?: Yes Diagnosis: Drug-seeking behavior, Chronic abdominal pain, Chronic back pain Disposition: ELOPEMENT - ER ONLY Disposition Time: 01:30 Condition: STABLE Referrals: PCP,NO [Primary Care Provider] - Follow up with primary Forms: [employer] (Mongolian)
[2018-06-28 00:41] LABS: BASO # 0.01 K/mm3 (0.0-2.0); BASO % 0.2 % (0.0-3.0); EOS # 0.4 (0.0-0.7); EOS % 7.3 % (1.5-5.0); HEMOGLOBIN 10.3 g/dL (14.0-18.0); LYMPH # 1.6 (1.2-3.4); LYMPH % 27.3 % (22.0-35.0); MEAN CELL VOLUME 86.2 fl (80.0-105.0); MEAN CORPUSCULAR HEMOGLOBIN 27.8 pg (25.0-35.0); MEAN CORPUSCULAR HGB CONC 32.3 g/dl (31.0-37.0); MEAN PLATELET VOLUME 10.3 fl (7.0-11.0); MONO # 0.4 (0.1-0.6); MONO % 6.6 % (1.0-6.0); RBC 3.7 10^6/uL (3.5-6.1); RED CELL DISTRIBUTION WIDTH 15.6 % (11.5-14.5); WHITE BLOOD COUNT 5.7 10^3/uL (4.5-11.0)
[2018-06-28 00:51] LABS: ALBUMIN 3.9 g/dL (3.0-4.8); CALCIUM 8.7 mg/dL (8.4-10.5)
[2018-06-28 00:59] LABS: TROPONIN I 0.05 ng/mL
== END 2018-06-28 01:50 | disposition left against medical advice (07) ==
LOC: ED 21:03
DX: R10.9 Unspecified abdominal pain (principal); M54.9 Dorsalgia, unspecified; G89.29 Other chronic pain; Z76.5 Malingerer [conscious simulation]; I12.0 Hypertensive chronic kidney disease with stage 5 chronic kidney disease or end stage renal disease; I25.2 Old myocardial infarction; E11.22 Type 2 diabetes mellitus with diabetic chronic kidney disease; N18.6 End stage renal disease; Z94.0 Kidney transplant status; Z99.2 Dependence on renal dialysis
CPT/HCPCS: 80053; 83690; 83735; 84484; 85025; 96374; 99284; J2270